=== PATIENT | male | born 2000 | race Caucasian/White ===

== ENCOUNTER 2018-10-09 12:11 | Inpatient (IN) | payer BC ==
[~2018-10-09] VITALS: Ht 185.4 cm; Wt 100.5 kg
--- OUTSIDE RECORDS SUMMARY | 2018-10-09 12:18 | XMS REPORT | Encounter Summary ---
Author Organization Unknown Address [address] [place] [address] Phone [phone] Reason for Visit Medical Complaint Instructions 1. Infectious mononucleosis mononucleosis, heterophile Ab, blood mononucleosis: care instructions 2. On examination - fever rapid flu (A+B) rapid strep group A, throat 3. Body mass index 25-29 - overweight learning about healthy weight 4. On examination - pulse rate - bradycardia 5. Counseling HPV (human papillomavirus) vaccine Gardasil: what you need to know influenza (flu) vaccine (inactivated or recombinant): what you need to know Discussion Note: None recorded. Plan of Care Patient Instructions Your Care Instructions Mononucleosis, also called mono, is an infection that is usually caused by the Vickey-Tejada virus. [place] is spread through contact with saliva, mucus from the nose and throat, and sometimes tears or blood. You can get mono by kissing a person who is infected. Or you may get it by sharing a drinking glass or eating utensils with someone who has mono. That person may not be sick at the time or may have had mono long before. [place] may cause your spleen to swell. The spleen is an organ in the upper left side of your belly. A blow to the belly can cause a swollen spleen to break open. In very rare cases, the spleen may burst on its own. Most people recover fully after several weeks. But it may take several months before your normal energy is back. The lymph nodes in your neck may be larger than normal for up to 1 month. Getting lots of rest and keeping your schedule light will help you feel better. Time helps you recover. Follow-up care is a rueda part of your treatment and safety. Be sure to make and go to all appointments, and call your doctor if you are having problems. It's also a good idea to know your test results and keep a list of the medicines you take. How can you care for yourself at home? Get plenty of rest. Stay in bed until you feel well enough to be up. Drink plenty of fluids, enough so that your urine is light yellow or clear like water. If you have kidney, heart, or liver disease and have to limit fluids, talk with your doctor before you increase the amount of fluids you drink. Take your medicines exactly as prescribed. Call your doctor if you think you are having a problem with your medicine. For a sore throat, suck on lozenges or gargle with salt water. To make salt water, mix 1 teaspoon of salt in 8 ounces of warm water. Take an gtyt-rzq-bkyuryn pain medicine, such as acetaminophen (Tylenol), ibuprofen (Advil, Motrin), or naproxen (Aleve) for a sore throat or headache or to lower a fever. Read and follow all instructions on the label. Do not take two or more pain medicines at the same time unless the doctor told you to. Many pain medicines have acetaminophen, which is Tylenol. Too much acetaminophen (Tylenol) can be harmful. Do not play contact sports for 4 weeks. Do not lift anything heavy. Too much activity increases the chance that your spleen may break open. Try not to spread the virus to others. Do not kiss or share dishes, glasses, eating utensils, or toothbrushes for at least two weeks. The virus is spread when saliva from an infected person gets in another person's mouth. It is hard to know how long you may be contagious. If you know you have mono, do not donate blood. There is a chance of spreading the virus through blood products. When should you call for help? Call 911 anytime you think you may need emergency care. For example, call if: You passed out (lost consciousness). Call your doctor now or seek immediate medical care if: You have new or worse belly pain. You have signs of needing more fluids. You have sunken eyes and a dry mouth, and you pass only a little urine. You are dizzy or lightheaded, or you feel like you may faint. You cannot swallow fluids. Watch closely for changes in your health, and be sure to contact your doctor if: You do not get better as expected. Reminders Provider Appointments None recorded. Lab Rapid Flu (A+B) 10/06/2018 [facility] Mononucleosis, Heterophile Ab, Blood 10/06/2018 [facility] Rapid Strep Group a, Throat 10/06/2018 [facility] Referral None recorded. Procedures None recorded. Surgeries None recorded. Imaging None recorded. Medications No Medications Reported Medications Administered None recorded. Vitals Height Weight BMI Blood Pressure 6 ft 1 in 220 lbs 29 kg/m2 112/76 mm[Hg] Lab Results Date Name Specimen Result Interpretation Description Value Range Status Address 10/06/2018 Mononucleosis, Heterophile Ab, Blood Result positive [facility]: [address] [place] [address] Rapid Strep Group a, Throat Result negative [facility]: [address] [place] [address] Swab Location Left and Right tonsillar pillars [facility]: [address] [place] [address] Rapid Flu (A+B) Influenza a negative [facility]: [address] [place] [address] Influenza B negative [facility]: [address] [place] [address] Allergies Code Code System Name Reaction Severity Status Onset NKDA Problems Name Status Onset Date Source Environmental Allergy Active 10/06/2018 Procedures None recorded. Vaccine List None recorded. Social History Smoking Status Never Smoker Past Encounters 10/06/2018 Infectious Mononucleosis; On Examination - Fever; Body Mass Index 25-29 - Overweight; On Examination - Pulse Rate - Bradycardia; Counseling Usha Christina, CHIEF DESIGN ENGINEER-C: [address] [place] [address], Ph. History of Present Illness Ekzjvga-Cmwhf-Lvi Reported By: Patient HPI: Duration: 6 days. Severity: highest temperature 102. Context: no ill contacts, no tick/insect bites, no recent travel, no new medications. Associated Symptoms: no rash, no lethargy, fever/chills, headache, muscle aches, tired (fatigue). Modifying Factors OTC medication Review of Systems:ROS as noted in the HPI Review of Systems Basic Reported By: Patient Physical Exam Adult Basic, 14-21 Yr Male, Adult Male Complete Reported By: Patient Constitutional: General Appearance: healthy-appearing, well-nourished, well-developed. Level of Distress: NAD. Ambulation: ambulating normally Psychiatric: Mental Status: active and alert, normal affect, normal mood. Orientation: to time, to place, to person Djj-Hjwz-Kygfi-Throat: Ears: no lesions on external ear, no outer ear tenderness, EACs clear, TMs clear. Hearing: no hearing loss. Nose: no lesions on external nose, nares patent, no septal deviation, nasal passages clear, no sinus tenderness, no nasal discharge. Lips, Teeth, and Gums: no mouth or lip ulcers, no bleeding gums, normal dentition. Oropharynx: moist mucous membranes, no erythema, no exudates, tonsils not enlarged Lungs: Respiratory effort: no dyspnea, no tachypnea, no use of accessory muscles, no intercostal retractions. Auscultation: breath sounds normal, clear to auscultation, no wheezing, no rales/crackles, no rhonchi, no retractions, good air movement Cardiovascular: Heart Auscultation: no murmurs, bradycardia. Rate and rhythm: regular
--- OUTSIDE RECORDS SUMMARY | 2018-10-09 12:18 | XMS REPORT | Summary of Care ---
Author Author [facility] Address Unknown Phone Unavailable Encounter HQ Encntr_alicayetano([facility]) [id number] Date(s): 01/12/16 - 02/10/16 [facility] Discharge Disposition: Home or Self Care Attending Physician: Rolando Gao MD Vital Signs No data available for this section Problem List No data available for this section Allergies, Adverse Reactions, Alerts No data available for this section Medications No data available for this section Results No data available for this section Immunizations No data available for this section Procedures No data available for this section Social History No data available for this section Assessment and Plan No data available for this section
--- OUTSIDE RECORDS SUMMARY | 2018-10-09 12:18 | XMS REPORT | Summary of Care ---
Author Author [facility] Organization [facility] Address Unknown Phone Unavailable Encounter HQ Encntr_anitra([facility]) [id number] Date(s): 09/11/15 - 10/10/15 [facility] Discharge Disposition: Home Attending Physician: Rolando Gao MD Vital Signs [...]
--- OUTSIDE RECORDS SUMMARY | 2018-10-09 12:18 | XMS REPORT | Summary of Care ---
Author Author [facility] Address Unknown Phone Unavailable Encounter HQ Encntr_alicayetano([facility]) [id number] Date(s): 03/15/16 - 04/13/16 [facility] Discharge Disposition: Home or Self Care Attending [...]
--- OUTSIDE RECORDS SUMMARY | 2018-10-09 12:18 | XMS REPORT | Continuity of Care Document ---
Author Author [facility] Address Unknown Phone Unavailable Care Team Providers Care Genetics Teacher Name Role Phone [facility] Unavailable Unavailable Problems Problem Status Onset Date Classification Date Reported Comments Source Counseling 10/06/2018 Diagnosis 10/06/2018 [facility] On examination - pulse rate - bradycardia 10/06/2018 Diagnosis 10/06/2018 [facility] Body mass index 25-29 - overweight 10/06/2018 Diagnosis 10/06/2018 [facility] Infectious mononucleosis 10/06/2018 Diagnosis 10/06/2018 [facility] On examination - fever 10/06/2018 Diagnosis 10/06/2018 [facility] Environmental Allergy 10/06/2018 Problem 10/06/2018 [facility] M25.562 - PAIN IN LEFT KNEE Active 01/03/2015 [facility] [place] LEFT KNEE ACL TEAR/SX 01/16/15 Active 01/02/2015 [facility] LT KNEE POST OP Active [facility] LT ACL PARTIAL TEAR Active [facility] LT ACL Active [facility] [place] Medications Medication Details Route Status Patient Instructions Ordering Provider Order Date Source No Medications Reported No Medications Reported Active [facility] Allergies, Adverse Reactions, Alerts No Known Medication Allergies Immunizations No Data Provided for This Section Results Order Name Results Value Reference Range Date Interpretation Comments Source RESULT positive 10/06/2018 [facility] RESULT negative 10/06/2018 [facility] SWAB LOCATION Left and Right tonsillar pillars 10/06/2018 [facility] Influenza A negative 10/06/2018 [facility] Influenza B negative 10/06/2018 [facility] Pathology Reports No Data Provided for This Section Diagnostic Reports Report Value Date Source Knee wo contrast MRI EXAM: MR LEFT KNEE WITHOUT CONTRAST DATE: 10/04/2015 11:24 AM CDT INDICATION: S83.512A Sprain of anterior cruciate ligament of left knee, initial encounter COMPARISON: 2014 TECHNIQUE: Multiplanar, multisequence noncontrast imaging of the knee. FINDINGS: Menisci: Medial meniscus: Intact. Lateral meniscus: Free edge irregularity of the posterior body of the lateral meniscus is identified.. (Series 4 image 24). No displaced tear. Intrameniscal degenerative changes are present. Ligaments: Prior ACL replacement is identified. There is high-grade partial- thickness tear of the distal substance of the ACL graft material with approximately 20-30 % of fibers still remaining intact. (Series 5 image 18). There is some laxity of the remaining graft material. Visualized tibial and femoral portions of the ACL tunnels are normal. PCL is intact.. Subacute to chronic grade 2 age injury of the anterior longitudinal bundle of the medial collateral ligament midsubstance is seen. Lateral collateral ligament is intact. Extensor mechanism: Minimal tendinosis the proximal patellar tendon is identified. Muscles: No signal abnormality in the muscles. Cartilage: No chondral defects. Bone: Bone edema seen involving the inferior pole of the patella where there is also minimal trabecular impaction without focal depression. There is minimal adjacent Hoffa's fat pad edema. Pivot shift type of bone contusion is seen involving the posterior tibial plateau. Soft tissue: Moderate size joint effusion with synovitis is present. No abnormality of the neurovascular structures. IMPRESSION: 1. . High-grade distal substance ACL graft tear. Less than 20-30% of fibers are still intact. Laxity of the graft is noted. Tibial and femoral tunnels are satisfactory with no evidence of dilatation. 2. Trabecular impaction without focal depression of the inferior pole of the patella with bone edema and adjacent Hoffa's fat pad edema likely due to direct injury. 3. Subacute to chronic grade 2 injury of the anterior longitudinal bundle of the medial collateral ligament. 4. Free edge irregularity of the posterior body of the lateral meniscus with intrasubstance degeneration. 5. Pivot shift type of bone edema of the posterior tibial plateau. 6. Joint effusion mild synovitis 10/04/2015 NICOLASA Dior Knee wo contrast MRI EXAM: MRI LEFT KNEE WITHOUT CONTRAST DATE: 01/07/2015 at 1326 hours INDICATION: Left knee pain COMPARISON: Left knee series 01/03/2015 TECHNIQUE: Multiplanar noncontrast imaging of the knee was performed. FINDINGS: The exam is mild limited by patient motion. Menisci: There is a grade 2 sprain of the meniscofemoral ligaments of the midbody of the medial meniscus. The medial and lateral menisci are intact. Ligaments: ACL: Full-thickness midsubstance rupture of the ACL. MCL: Grade 2 sprain of the anterior fibers of the MCL proximally. The PCL and lateral collateral ligaments are intact. Extensor mechanism: The quadriceps tendon, patella and the patellar tendon are intact. Muscles: There is minimal edema within the psoas, without muscle tear. No signal abnormality in the muscles. Cartilage: No cartilage defects. Bone: A pivot shift contusion pattern is seen with edema within the posterolateral and posteromedial tibial plateaus and the lateral femoral condyle in the region of the lateral sulcus. No focal depression. Soft tissue: A small suprapatellar knee effusion is present. No abnormality of the neurovascular structures. IMPRESSION: 1. Full-thickness midsubstance rupture of the ACL. 2. Grade 2 sprain of the proximal MCL. 3. Low grade sprain of the medial meniscofemoral ligaments at the mid body of the medial meniscus. No meniscal tear. 4. Pivot shift contusions without focal depression. 01/07/2015 NICOLASA Dior Knee 4+ views unilateral DX EXAM: Knee 4+ views unilateral HISTORY: M25.562 Pain in left knee COMPARISON: None Four views of the left knee. No fracture is seen. There is no evidence of soft tissue swelling. Alignment is normal. No osteochondral lesion is identified. There is a small joint effusion. IMPRESSION: No acute abnormality. 01/03/2015 NICOLASA [place] Consultation Notes No Data Provided for This Section Discharge Summaries No Data Provided for This Section History and Physicals No Data Provided for This Section Vital Signs Vital Sign Value Date Comments Source Diastolic (mm Hg) 76 10/06/2018 [facility] Height 73 10/06/2018 [facility] Systolic (mm Hg) 112 10/06/2018 [facility] Weight 220 10/06/2018 [facility] Encounters Location Location Details Encounter Type Encounter Number Reason For Visit Attending Provider ADM Date DC Date Status Source [facility] [place] [facility] [id number] Gm Auguste Jr 01/03/2015 01/04/2015 NICOLASA Lucas [facility] [place] [facility] [id number] Gm Auguste Jr 01/07/2015 01/08/2015 NICOLASA Dior [facility] OP Therapy Patients [id number] Gm Auguste Jr 07/09/2015 08/08/2015 [facility] OP Therapy Patients [id number] Rolando Griffin08/08/2015 09/07/2015 [facility] [id number] Rolando Griffin09/11/2015 10/11/2015 [facility] [place] Out[facility] Di[facility] [id number] Rolando Griffin10/04/2015 10/05/2015 [facility] [place] [facility] [place] OP Therapy Patients [id number] Rolando Griffin01/12/2016 02/11/2016 [facility] [place] [facility] [place] [facility] Therapy Patients [id number] Rolando Griffin02/11/2016 03/12/2016 [facility] [place] [facility] [place] OP Therapy Patients [id number] Rolando Griffin03/15/2016 2016 [facility] [place] - [facility] - [id number] Usha Christina, COMPENSATION AGENT-C: [address], [place] [address], Ph. [id number] Usha Christina 10/06/2018 [facility] Procedures No Data Provided for This Section Assessment and Plan No Data Provided for This Section Plan of Care No Data Provided for This Section Social History Social History Date Source Smoking Status Never Smoker 10/06/2018 [facility] No data available for this section 2016 [facility] [place] No data available for this section 10/11/2015 [facility] No data available for this section 10/05/2015 [facility] [place] No data available for this section 01/04/2015 [facility] [place] Family History No Data Provided for This Section Advance Directives No Data Provided for This Section Functional Status No Data Provided for This Section
--- OUTSIDE RECORDS SUMMARY | 2018-10-09 12:18 | XMS REPORT | Summary of Care ---
Author Author [facility] [place] Address Unknown Phone Unavailable Encounter HQ Encntr_alias([facility]) [id number] Date(s): 01/07/15 - 01/07/15 [facility] Outpatient [facility] [place] [address] [place] [phone] Discharge Disposition: Home Attending Physician: Gm Robles MD Vital Signs No data available for [...]
--- OUTSIDE RECORDS SUMMARY | 2018-10-09 12:18 | XMS REPORT | Summary of Care ---
Author Author [facility] [place] Address Unknown Phone Unavailable Encounter HQ Encntr_alias([facility]) [id number] Date(s): 10/04/15 - 10/04/15 [facility] [place] [address] [place] [phone] Discharge Disposition: Home Attending Physician: Rolando Gao [...]
--- OUTSIDE RECORDS SUMMARY | 2018-10-09 12:18 | XMS REPORT | Summary of Care ---
Author Author [facility] Organization [facility] Address Unknown Phone Unavailable Encounter HQ Marizolberthar_anitra([facility]) [id number] Date(s): 07/09/15 - 08/07/15 [facility] Discharge Disposition: Home Attending Physician: Gm Robles [...]
--- OUTSIDE RECORDS SUMMARY | 2018-10-09 12:18 | XMS REPORT | Summary of Care ---
Author Author [facility] Address Unknown Phone Unavailable Encounter HQ Encntr_alicayetano([facility]) [id number] Date(s): 02/11/16 - 03/11/16 [facility] Discharge Disposition: Home or Self Care [...]
--- OUTSIDE RECORDS SUMMARY | 2018-10-09 12:18 | XMS REPORT | Summary of Care ---
Author Author [facility] Organization [facility] Address Unknown Phone Unavailable Encounter HQ Salomónr_anitra([facility]) [id number] Date(s): 08/08/15 - 09/06/15 [facility] Discharge Disposition: Home Attending Physician: Rolando Gao [...]
--- OUTSIDE RECORDS SUMMARY | 2018-10-09 12:18 | XMS REPORT | Summary of Care ---
Author Author [facility] [place] Organization [facility] [place] Address Unknown Phone Unavailable Encounter HQ Encntr_anitra([facility]) [id number] Date(s): 01/03/15 - 01/03/15 [facility] [place] [address] [place], [place] [address] [phone] Discharge Disposition: Home Attending Physician: Gm Robles [...]
[2018-10-09] MEDS ORDERED: SODIUM CHLORIDE 0.9% 1000ML 1,000 ML IV STA (12:38)
[2018-10-09] MEDS ORDERED: ONDANSETRON HCL INJ 2MG/ML 2ML 2 MG/ML VIAL IV ONE (13:00)
[2018-10-09 13:07] LABS: BILIRUBIN,URINE LARGE (NEGATIVE); CLARITY,URINE CLOUDY (CLEAR); COLOR,URINE ORANGE (YELLOW); LEUKOCYTE ESTERASE ,URINE NEGATIVE (NEGATIVE); NITRITE,URINE NEGATIVE (NEGATIVE); PROTEIN,URINE DIPSTICK 1+ (NEGATIVE); URINE UROBILINOGEN 4 mg/dL (0.2 - 1)
[2018-10-09 13:11] LABS: KETONES,URINE 2+ (NEGATIVE)
[2018-10-09 13:22] LABS: BACTERIA,URINE MODERATE /HPF
[2018-10-09 13:34] LABS: AMPHETAMINES SCREEN,URINE NEGATIVE (NEGATIVE); BENZODIAZEPINES SCREEN,URINE NEGATIVE (NEGATIVE); PHENCYCLIDINE SCREEN,URINE NEGATIVE (NEGATIVE)
[2018-10-09 13:39] LABS: BASOPHILS # (AUTO) 0.1 (0.0-0.1); BASOPHILS % 0.9 % (0.0-1.0); EOSINOPHILS # (AUTO) 0.1 (0.0-0.4); EOSINOPHILS % 0.5 % (0.0-6.0); HEMATOCRIT 40.6 % (38.2-49.6); HEMOGLOBIN 14.5 g/dL (14.0-18.0); LYMPHOCYTES # (AUTO) 8.7 (1.0-3.2); LYMPHOCYTES % 67.8 % (18.0-39.1); MEAN CORPUSCULAR HEMOGLOBIN 28.5 pg (28-32); MEAN CORPUSCULAR HGB CONC 35.7 g/dL (31-35); MEAN CORPUSCULAR VOLUME 79.9 fL (81-99); MONOCYTES # (AUTO) 1.8 (0.2-0.8); MONOCYTES % 14.1 % (4.4-11.3); NEUTROPHILS # (AUTO) 2.1 (2.1-6.9); NEUTROPHILS % 16.3 % (38.7-80.0); PLATELET COUNT 113 x10e3/uL (140-360); RED BLOOD COUNT 5.08 x10e6/uL (4.3-5.7); RED CELL DISTRIBUTION WIDTH 12.9 % (11.7-14.4)
[2018-10-09 13:56] LABS: ALANINE AMINOTRANSFERASE 319 IU/L (0-55); ALBUMIN 3.7 g/dL (3.5-5.0); ALBUMIN/GLOBULIN RATIO 0.9 (0.8-2.0); ALKALINE PHOSPHATASE 332 IU/L (40-150); ANION GAP 17.7 mmol/L (8-16); BLOOD UREA NITROGEN 10 mg/dL (7-26); BUN/CREATININE RATIO 10 (6-25); CALCIUM 9.4 mg/dL (8.4-10.2); CARBON DIOXIDE 22 mmol/L (22-29); CHLORIDE 98 mmol/L (98-107); CREATININE, SERUM 1.02 mg/dL (0.72-1.25); EST GLOMERULAR FILTRATION RATE > 60 ML/MIN (60-); GLUCOSE 81 mg/dL (74-118); POTASSIUM 3.7 mmol/L (3.5-5.1); SODIUM 134 mmol/L (136-145)
[2018-10-09 14:05] LABS: CREATINE KINASE MB 0.4 ng/mL (0-5.0)
--- NOTE | 2018-10-09 14:06 | Diagnostic Imaging Report ---
PROCEDURE: Frontal and lateral views of the chest. COMPARISON: None. INDICATIONS: FEVER, MONO FINDINGS: Lines/tubes: None. Lungs: The lungs are well inflated and clear. There is no evidence of pneumonia or pulmonary edema. Pleura: There is no pleural effusion or pneumothorax. Heart and mediastinum: The heart and the mediastinum are normal. Bones: No acute bony abnormality. IMPRESSION: 1. No acute cardiopulmonary abnormality. Dictated by: Efrain Fletcher M.D. on 10/09/2018 at 14:10 Electronically approved by: Efrain Fletcher M.D. on 10/09/2018 at 14:10
[2018-10-09 14:35] LABS: AMPHETAMINES SCREEN,URINE NEGATIVE (NEGATIVE); BENZODIAZEPINES SCREEN,URINE NEGATIVE (NEGATIVE); PHENCYCLIDINE SCREEN,URINE NEGATIVE (NEGATIVE)
[2018-10-09 15:13] LABS: AMYLASE 66 U/L (25-125); LIPASE 33 U/L (8-78)
[2018-10-09] MEDS ORDERED: PROAIR HFA INH8.5 GM INH (15:38)
[2018-10-09] MEDS ORDERED: PREDNISONE20 MG PO (15:38)
--- NOTE | 2018-10-09 16:46 | Diagnostic Imaging Report ---
EXAM: CT Abdomen and Pelvis WITH intravenous contrast INDICATION: Abdominal pain COMPARISON: None. TECHNIQUE: Abdomen and pelvis were scanned utilizing a multidetector helical scanner from the lung base to the pubic symphysis after administration of IV contrast. Coronal and sagittal reformations were obtained. Routine protocol was performed. Scan was performed when during portal venous phase. IV CONTRAST: 100 mL of Isovue-370 ORAL CONTRAST: Water COMPLICATIONS: None RADIATION DOSE: Total DLP: 526.92 mGy*cm Estimated effective dose: (DLP x 0.015 x size factor) mSv Dose modulation, iterative reconstruction, and/or weight based adjustment of the mA/kV was utilized to reduce the radiation dose to as low as reasonably achievable. FINDINGS: LOWER THORAX: Minimal bibasilar dependent subsegmental atelectasis. No focal consolidation. HEPATOBILIARY: No focal hepatic lesions. No biliary ductal dilatation. The gallbladder is decompressed. SPLEEN: Splenomegaly to 18.2 cm PANCREAS: No focal masses or ductal dilatation. ADRENALS: No adrenal nodules. KIDNEYS/URETERS: No hydronephrosis, stones, or solid mass lesions. PELVIC ORGANS/BLADDER: Unremarkable. PERITONEUM / RETROPERITONEUM: No free air or fluid. LYMPH NODES: No lymphadenopathy. VESSELS: Unremarkable. GI TRACT: No distention or wall thickening. Normal appendix. BONES AND SOFT TISSUES: Unremarkable. IMPRESSION: No acute findings in the abdomen or pelvis. Mild splenomegaly. Signed by: Jus Mota MD on 10/09/2018 4:43 PM
--- OUTSIDE RECORDS SUMMARY | 2018-10-09 18:29 | XMS REPORT | Continuity of Care Document ---
Author Author [employer] Address Unknown Phone Unavailable Care Team Providers Care Director Workforce Management Name Role Phone [employer] Unavailable Unavailable Problems Problem Status Onset Date [...] PAIN IN LEFT KNEE Active 01/03/2015 [facility] LEFT KNEE ACL TEAR/SX 01/16/15 Active 01/02/2015 [facility] LT KNEE POST OP Active [facility] LT ACL PARTIAL TEAR Active [facility] LT ACL Active [facility] Medications Medication Details Route Status Patient Instructions [...] Provider ADM Date DC Date Status Source [facility] [place] [facility] [id number] Gm Auguste Jr 01/03/2015 01/04/2015 NICOLASA Lucas [facility] [place] [facility] [id number] Gm Auguste Jr 01/07/2015 01/08/2015 NICOLASA Dior [facility] OP Therapy Patients [id number] Gm Auguste Jr 07/09/2015 08/08/2015 [facility] OP Therapy Patients [id number] Rolando Griffin08/08/2015 09/07/2015 [facility] OP [facility] Patients [id number] Rolando Griffin09/11/2015 10/11/2015 [facility] [place] [facility] [id number] Rolando Griffin10/04/2015 10/05/2015 [facility] [place] Patients [id number] Rolando Griffin01/12/2016 02/11/2016 [facility] Patients [id number] Rolando Griffin02/11/2016 03/12/2016 [facility] Patients [id number] Rolando Griffin03/15/2016 2016 [facility] [place] [facility] - [id number] Usha Christina, CONTROL OFFICER-C: [address], [place] [address], Ph. [id number] Usha Christina 10/06/2018 [facility] Procedures No Data Provided for This Section Assessment and Plan No Data Provided for This Section Plan of Care No Data Provided for This Section Social History Social History Date Source Smoking Status Never Smoker 10/06/2018 [facility] No data available for this section 2016 [facility] No data available for this section 10/11/2015 [facility] No data available for this section 10/05/2015 [facility] [place] No data available for this section 01/04/2015 [facility] Family History No Data Provided for This Section Advance Directives No Data Provided for This Section Functional Status No Data Provided for This Section
--- OUTSIDE RECORDS SUMMARY | 2018-10-09 18:29 | XMS REPORT ---
Author Author [facility] Address Unknown Phone Unavailable Care Team Providers Care It Infrastructure Manager Name Role Phone Ayleen KIDD Unavailable Unavailable Problems This patient has no known problems. Allergies, Adverse Reactions, Alerts This patient has no known allergies or adverse reactions. Medications This patient has no known medications. Results Test Description Test Time Test Comments Text Results Atomic Results Result Comments CT ABDOMEN/PELVIS W 2018-10-09 16:36:00 [facility] [address] [place] [address] Patient Name: RENETTA FERNÁNDEZ MR #: [id number] : 2000 Age/Sex: 18/M Req #: [id number] Adm Physician: Ordered by: FLORENCIO CAGLE GARNETT ROOM WORKER Report #: [id number] Location: ER Room/Bed: Procedure: [id number] CT/CT ABDOMEN/PELVIS W Exam Date: 10/09/18 Exam Time: 1530 REPORT STATUS: Signed EXAM: CT Abdomen and Pelvis WITH intravenous contrast INDICATION: Abdominal pain COMPARISON: None. TECHNIQUE: Abdomen and pelvis were scanned utilizing a multidetector helical scanner from the lung base to the pubic symphysis after administration of IV contrast. Coronal and sagittal reformations were obtained. Routine protocol was performed. Scan was performed when during portal venous phase. IV CONTRAST: 100 mL of Isovue-370 ORAL CONTRAST: Water COMPLICATIONS: None RADIATION DOSE: Total DLP: 526.92 mGy*cm Estimated effective dose: (DLP x 0.015 x size factor) mSv Dose modulation, iterative reconstruction, and/or weight based adjustment of the mA/kV was utilized to reduce the radiation dose to as low as reasonably achievable. FINDINGS: LOWER THORAX: Minimal bibasilar dependent subsegmental atelectasis. No focal consolidation. HEPATOBILIARY: No focal hepatic lesions. No biliary ductal dilatation. The gallbladder is decompressed. SPLEEN: Splenomegaly to 18.2 cm PANCREAS: No focal masses or ductal dilatation. ADRENALS: No adrenal nodules. KIDNEYS/URETERS: No hydronephrosis, stones, or solid mass lesions. PELVIC ORGANS/BLADDER: Unremarkable. PERITONEUM / RETROPERITONEUM: No free air or fluid. LYMPH NODES: No lymphadenopathy. VESSELS: Unremarkable. GI TRACT: No distention or wall thickening. Normal appendix. BONES AND SOFT TISSUES: Unremarkable. IMPRESSION: No acute findings in the abdomen or pelvis. Mild splenomegaly. Signed by: Chela Mendez MD on 10/09/2018 4:43 PM Dictated By: CHELA MENDEZ MD 164 Transcribed By: ELISABET on 10/09/18 164 COPY TO: FLORENCIO CAGLE GARNETT ROOM WORKER CHEST 2 VIEWS 2018-10-09 14:10:00 [place] [address] Patient Name: RENETTA FERNÁNDEZ MR #: [id number] : 2000 Age/Sex: 18/M Req #: [id number] Adm Physician: Ordered by: FLORENCIO CAGLE GARNETT ROOM WORKER Report #: [id number] Location: ER Room/Bed: Procedure: [id number] DX/CHEST 2 VIEWS Exam Date: 10/09/18 Exam Time: 1250 REPORT STATUS: Signed PROCEDURE: Frontal and lateral views of the chest. COMPARISON: None. INDICATIONS: FEVER, MONO FINDINGS: Lines/tubes: None. Lungs: The lungs are well inflated and clear. There is no evidence of pneumonia or pulmonary edema. Pleura: There is no pleural effusion or pneumothorax. Heart and mediastinum: The heart and the mediastinum are normal. Bones: No acute bony abnormality. IMPRESSION: 1. No acute cardiopulmonary abnormality. Dictated by: Farhad Clifton M.D. on 10/09/2018 at 14:10 Electronically approved by: Farhad Clifton M.D. on 10/09/2018 at 14:10 Dictated By: FARHAD CLIFTON MD 1410 Transcribed By: YOGESH on 10/09/18 1410 COPY TO: FLORENCIO CAGLE NP
[2018-10-09 18:32] LABS: ANISOCYTOSIS MODERATE; LYMPHOCYTES % (MANUAL) 22 % (19-48); MONOCYTES % (MANUAL) 17 % (3.4-9.0); NEUTROPHILS % (MANUAL) 47 % (40-74); RBC MORPHOLOGY COMMENT ABNORMAL
[2018-10-09 18:33] LABS: PLATELET ESTIMATE SLIGHTLY DECREASED; PLATELET MORPHOLOGY COMMENT FEW GIANT; POIKILOCYTOSIS SLIGHT
[2018-10-09] MEDS ORDERED: IOPAMIDOL 370 MG/ML 200 ML INFUS..BTL INJ ONE (18:59)
[2018-10-09] MEDS ORDERED: SODIUM CHLORIDE 0.9% 50ML 50 ML ONE (18:59)
[2018-10-09 20:00] VITALS: BP 131/69
--- NOTE | 2018-10-09 20:00 | NUR ---
INITIAL ASSESSMENT COMPLETE, HEALTH HISTORY OBTAINED, PT ARRIVED ON UNIT 1944 VIA STRETCHER FROM ER, PT C/O SEVERE HEADACHE, HAS BEEN TO DR TWICE WITHIN A WEEK, DR SENT TO ER TODAY, POSSIBLE MONO AND DEHYDRATION. PT IV INTACT, FAMILY AT BEDSIDE, VS STABLE, CALL PLACED TO BRYANT WEISS FOR NEW ORDERS, PT HAS NO HOME MEDICATION, NO MEDICATION ORDERED HERE AT THIS TIME, WILL CONTINUE TO MONITOR.
[2018-10-09] MEDS ORDERED: IBUPROFEN 200 MG TAB PO PRN (20:15)
[2018-10-09] MEDS ORDERED: IBUPROFEN 400 MG TAB PO PRN (20:30)
[2018-10-09] MEDS ORDERED: MORPHINE SULFATE 2 MG/ML SYR 1ML IV PRN (21:00)
[2018-10-09] MEDS: DEXTROSE 5%/0.45% SOD CHL 1,000 ML IV SCH (21:00)
[2018-10-09] MEDS: ONDANSETRON HCL INJ 2MG/ML 2ML 2 MG/ML VIAL IV PRN (21:00)
[2018-10-09] MEDS: FAMOTIDINE 20 MG TAB PO SCH (21:00)
[2018-10-09] MEDS: IBUPROFEN 400 MG TAB PO PRN (21:00)
--- NOTE | 2018-10-09 21:00 | NUR ---
SPOKE WITH BRYANT WEISS, NEW ORDERS RECEIVED, HE SPOKE WITH DR VELASCO, IV FLUIDS STARTED, PT HAD CONTRAST TODAY, HAS ONLY URINATED ONCE IN 12 HOURS, IV MEDS ORDERED,
[2018-10-09] MEDS: MORPHINE SULFATE INJ 4 MG/ML INJ 1ML IV PRN (21:15)
[2018-10-09] MEDS: CEFTRIAXONE SOD 1 GM/NS 50 ML 50 ML IV SCH (21:15)
--- NOTE | 2018-10-09 22:00 | NUR ---
LABS DRAWN, SPOKE WITH BRYANT WEISS AGAIN, PT DID URINATE DARK BROWN RED URINE, STILL C/O OF HEADACHE THROBBING, CAN PUT CHIN TO CHEST WITHOUT PAIN, IV ABX STARTED, FAMILY AT BEDSIDE, CONTINUE TO MONITOR PT
[2018-10-09 23:01] LABS: CREATINE KINASE 66 IU/L (30-200)
[2018-10-09] MEDS ORDERED: DOCUSATE SODIUM 100 MG CAP PO PRN (23:45)
[2018-10-09] MEDS ORDERED: HYDRALAZINE HCL 20 MG/ML VIAL IV PRN (23:45)
[2018-10-09] MEDS ORDERED: POLYETHYLENE GLYCOL 3350 17 GM PACK PO PRN (23:45)
--- NOTE | 2018-10-10 | NUR ---
VS STABLE, NO FEVER, EASILY AWAKEN, IV INTACT, FAMILY AT BEDSIDE, CALL LIGHT IN REACH, NO DISTRESS NOTED
[2018-10-10 00:09] VITALS: BP 135/58
[2018-10-10 04:00] VITALS: BP 136/60
[2018-10-10] MEDS ORDERED: BACLOFEN 10 MG TAB PO PRN (05:15)
[2018-10-10] MEDS: IBUPROFEN 400 MG TAB PO PRN ×2 (05:25→14:20)
--- NOTE | 2018-10-10 05:35 | NUR ---
BUSHRA HERE TO SEE PT AND WRITE NEW ORDERS, CT SCAN W/O CONTRAST, NEW LAB ORDERS. PT STILL C/O HEADACHE AND URINE STILL DARK BROWN AND REDISH COLOR.
[2018-10-10 05:49] LABS: BASOPHILS % 0.5 % (0.0-1.0); EOSINOPHILS # (AUTO) 0.1 (0.0-0.4); EOSINOPHILS % 0.8 % (0.0-6.0); HEMATOCRIT 40.2 % (38.2-49.6); HEMOGLOBIN 13.9 g/dL (14.0-18.0); LYMPHOCYTES # (AUTO) 5.7 (1.0-3.2); LYMPHOCYTES % 66.9 % (18.0-39.1); MEAN CORPUSCULAR HEMOGLOBIN 27.9 pg (28-32); MEAN CORPUSCULAR HGB CONC 34.6 g/dL (31-35); MEAN CORPUSCULAR VOLUME 80.6 fL (81-99); MONOCYTES # (AUTO) 0.4 (0.2-0.8); NEUTROPHILS # (AUTO) 2.3 (2.1-6.9); NEUTROPHILS % 26.2 % (38.7-80.0); PLATELET COUNT 109 x10e3/uL (140-360); RED BLOOD COUNT 4.99 x10e6/uL (4.3-5.7); RED CELL DISTRIBUTION WIDTH 13.2 % (11.7-14.4)
[2018-10-10 06:10] LABS: ALANINE AMINOTRANSFERASE 263 IU/L (0-55); ALBUMIN 3.3 g/dL (3.5-5.0); ALBUMIN/GLOBULIN RATIO 0.9 (0.8-2.0); ALKALINE PHOSPHATASE 330 IU/L (40-150); ANION GAP 14.5 mmol/L (8-16); BLOOD UREA NITROGEN 8 mg/dL (7-26); BUN/CREATININE RATIO 8 (6-25); CALCIUM 8.9 mg/dL (8.4-10.2); CARBON DIOXIDE 24 mmol/L (22-29); CHLORIDE 101 mmol/L (98-107); CHOL/HDL RATIO 14.7 (3.9-4.7); CHOLESTEROL 103 MD/DL (0-199); CREATININE, SERUM 0.97 mg/dL (0.72-1.25); EST GLOMERULAR FILTRATION RATE > 60 ML/MIN (60-); GLUCOSE 115 mg/dL (74-118); HDL CHOLESTEROL 7 MG/DL (40-60); LDL CHOLESTEROL 47 MG/DL (60-130); MAGNESIUM 1.9 MG/DL (1.3-2.1); PHOSPHORUS 2.6 MG/DL (2.3-4.7); POTASSIUM 3.5 mmol/L (3.5-5.1); SODIUM 136 mmol/L (136-145); TRIGLYCERIDES 245 MG/DL (0-149)
--- NOTE | 2018-10-10 06:27 | NUR ---
PT DOWN AND BACK FROM CT SCAN VIA WHEELCHAIR. NO DISTRESS NOTED. CONTINUE TO MONITOR CONDITION
[2018-10-10] MEDS: ONDANSETRON HCL INJ 2MG/ML 2ML 2 MG/ML VIAL IV PRN ×2 (06:40→14:20)
--- NOTE | 2018-10-10 06:52 | Diagnostic Imaging Report ---
Examination: CT BRAIN WO CONTRAST History:Headache Comparison studies:None Technique: Axial images were obtained from the skull base to the vertex. Coronal and sagittal images reconstructed from the axial data. Dose modulation, iterative reconstruction, and/or weight based adjustment of the mA/kV was utilized to reduce the radiation dose to as low as reasonably achievable. Intravenous contrast: None Findings: Scalp: No abnormalities. Bones: No fractures, blastic or lytic lesions. Brain sulci: Appropriate for age. Ventricles: Normal in size and configuration. No hydrocephalus. Extra-axial space: No abnormalities. Parenchyma: No abnormal densities. No masses, hemorrhage, or acute or chronic cortical based vascular insults.. Sellar/suprasellar region: No abnormalities. Craniocervical junction: Patent foramen magnum. No Chiari one malformation. Incidental findings: None. Impression: No intracranial abnormalities. Signed by: Dr. Michelle Ferreira M.D. on 10/10/2018 6:49 AM
[2018-10-10 06:53] LABS: CREATINE KINASE 62 IU/L (30-200)
--- NOTE | 2018-10-10 07:00 | NUR ---
pt alert resp even and unlabored no distress noted pt able to make needs known, pt has family member at bedside call light in reach.
[2018-10-10 07:30] VITALS: BP 127/62
[2018-10-10] MEDS: DEXTROSE 5%/0.45% SOD CHL 1,000 ML IV SCH ×2 (08:23→17:29)
[2018-10-10] MEDS: FAMOTIDINE 20 MG TAB PO SCH ×2 (08:23→17:29)
[2018-10-10] MEDS: LORATADINE 10 MG TAB PO SCH (08:23)
--- NOTE | 2018-10-10 13:25 | NUR ---
Visit made by the Spiritual Care Department Pastoral Visitor, Jennifer Viera. PV provided pastoral presence, prayer, hospitality, and supportive listening. Pastoral Visitor informed pt/family of the scope of Chemistry Research Assistant Services and availability. LINNEA RIZO Color Developer Spiritual Care Department O: [phone] Pager: [phone] ([phone] number calling from)
--- NOTE | 2018-10-10 14:20 | NUR ---
pt abating in treadwell at this at time
[2018-10-10 14:51] LABS: CREATINE KINASE MB 0.6 ng/mL (0-5.0)
[2018-10-10 15:58] VITALS: BP 124/58
--- NOTE | 2018-10-10 19:40 | NUR ---
report given to oncoming nurse for continued care
[2018-10-10 20:00] VITALS: BP 131/74
[2018-10-10 21:00] VITALS: BP 132/78
[2018-10-10] MEDS: ACETAMINOPHEN 325 MG TAB PO PRN (21:27)
[2018-10-10] MEDS: CEFTRIAXONE SOD 1 GM/NS 50 ML 50 ML IV SCH (21:30)
[2018-10-10] MEDS: MORPHINE SULFATE INJ 4 MG/ML INJ 1ML IV PRN (22:36)
[2018-10-11] VITALS (7 sets, daily range): BP systolic 106–139; BP diastolic 44–68
[2018-10-11] MEDS: DEXTROSE 5%/0.45% SOD CHL 1,000 ML IV SCH ×2 (04:08→13:13)
[2018-10-11 05:50] LABS: BASOPHILS % 0.3 % (0.0-1.0); EOSINOPHILS # (AUTO) 0.1 (0.0-0.4); EOSINOPHILS % 0.8 % (0.0-6.0); HEMOGLOBIN 13.3 g/dL (14.0-18.0); LYMPHOCYTES # (AUTO) 8.8 (1.0-3.2); LYMPHOCYTES % 78.4 % (18.0-39.1); MEAN CORPUSCULAR HEMOGLOBIN 28.7 pg (28-32); MEAN CORPUSCULAR VOLUME 81.9 fL (81-99); MONOCYTES # (AUTO) 0.5 (0.2-0.8); MONOCYTES % 4.3 % (4.4-11.3); NEUTROPHILS # (AUTO) 1.8 (2.1-6.9); NEUTROPHILS % 15.7 % (38.7-80.0); PLATELET COUNT 112 x10e3/uL (140-360); RED BLOOD COUNT 4.64 x10e6/uL (4.3-5.7); RED CELL DISTRIBUTION WIDTH 13.9 % (11.7-14.4)
[2018-10-11 06:06] LABS: ANION GAP 11.5 mmol/L (8-16); BLOOD UREA NITROGEN < 5 mg/dL (7-26); BUN/CREATININE RATIO 5 (6-25); CALCIUM 8.9 mg/dL (8.4-10.2); CARBON DIOXIDE 25 mmol/L (22-29); CHLORIDE 104 mmol/L (98-107); CREATININE, SERUM 0.95 mg/dL (0.72-1.25); EST GLOMERULAR FILTRATION RATE > 60 ML/MIN (60-); GLUCOSE 110 mg/dL (74-118); POTASSIUM 3.5 mmol/L (3.5-5.1); SODIUM 137 mmol/L (136-145)
[2018-10-11 06:46] LABS: BILIRUBIN,DIRECT 6.6 mg/dL (0.0-0.5)
--- NOTE | 2018-10-11 07:18 | NUR ---
patient endorsed to next shift for continuity of care.
[2018-10-11 07:29] LABS: EOSINOPHILS % (MANUAL) 1 % (0-7); LYMPHOCYTES % (MANUAL) 51 % (19-48); MONOCYTES % (MANUAL) 14 % (3.4-9.0); NEUTROPHILS % (MANUAL) 28 % (40-74); RBC MORPHOLOGY COMMENT NORMAL
[2018-10-11 07:30] LABS: PLATELET ESTIMATE SLIGHTLY DECREASED; PLATELET MORPHOLOGY COMMENT NORMAL
[2018-10-11] MEDS: FAMOTIDINE 20 MG TAB PO SCH ×2 (09:22→16:55)
[2018-10-11] MEDS: LORATADINE 10 MG TAB PO SCH (09:22)
[2018-10-11] MEDS: ONDANSETRON HCL INJ 2MG/ML 2ML 2 MG/ML VIAL IV PRN (16:36)
--- NOTE | 2018-10-11 19:00 | NUR ---
Received report from previous nurse. Call light within reach. Mother at bedside. Patient in bed.
[2018-10-11] MEDS: ACETAMINOPHEN 325 MG TAB PO PRN (19:38)
[2018-10-11] MEDS: IBUPROFEN 400 MG TAB PO PRN (19:49)
[2018-10-11] MEDS: CEFTRIAXONE SOD 1 GM/NS 50 ML 50 ML IV SCH (21:17)
[2018-10-11] MEDS: MORPHINE SULFATE INJ 4 MG/ML INJ 1ML IV PRN (23:48)
[2018-10-12] VITALS (7 sets, daily range): BP systolic 106–131; BP diastolic 52–69
[2018-10-12] MEDS: DEXTROSE 5%/0.45% SOD CHL 1,000 ML IV SCH ×3 (00:46→21:29)
[2018-10-12 03:40] LABS: BASOPHILS % 0.3 % (0.0-1.0); EOSINOPHILS # (AUTO) 0.1 (0.0-0.4); EOSINOPHILS % 0.9 % (0.0-6.0); HEMATOCRIT 38.1 % (38.2-49.6); HEMOGLOBIN 12.9 g/dL (14.0-18.0); LYMPHOCYTES # (AUTO) 9.5 (1.0-3.2); LYMPHOCYTES % 81.5 % (18.0-39.1); MEAN CORPUSCULAR HEMOGLOBIN 27.9 pg (28-32); MEAN CORPUSCULAR HGB CONC 33.9 g/dL (31-35); MEAN CORPUSCULAR VOLUME 82.5 fL (81-99); MONOCYTES # (AUTO) 0.5 (0.2-0.8); MONOCYTES % 4.2 % (4.4-11.3); NEUTROPHILS # (AUTO) 1.5 (2.1-6.9); NEUTROPHILS % 12.4 % (38.7-80.0); PLATELET COUNT 119 x10e3/uL (140-360); RED BLOOD COUNT 4.62 x10e6/uL (4.3-5.7); RED CELL DISTRIBUTION WIDTH 14.1 % (11.7-14.4)
[2018-10-12 04:03] LABS: ALANINE AMINOTRANSFERASE 178 IU/L (0-55); ALBUMIN 2.9 g/dL (3.5-5.0); ALKALINE PHOSPHATASE 316 IU/L (40-150); ANION GAP 12.2 mmol/L (8-16); BILIRUBIN,DIRECT 7.1 mg/dL (0.0-0.5); BLOOD UREA NITROGEN 5 mg/dL (7-26); BUN/CREATININE RATIO 5 (6-25); CALCIUM 8.9 mg/dL (8.4-10.2); CARBON DIOXIDE 26 mmol/L (22-29); CHLORIDE 104 mmol/L (98-107); CREATININE, SERUM 0.91 mg/dL (0.72-1.25); EST GLOMERULAR FILTRATION RATE > 60 ML/MIN (60-); GLUCOSE 111 mg/dL (74-118); POTASSIUM 3.2 mmol/L (3.5-5.1); SODIUM 139 mmol/L (136-145)
[2018-10-12] MEDS ORDERED: TYLENOL # 31 EA PO (05:40)
[2018-10-12] MEDS ORDERED: AMOXICILLIN500 MG PO (05:40)
[2018-10-12] MEDS ORDERED: ZOFRAN4 MG PO (05:40)
[2018-10-12] MEDS ORDERED: POTASSIUM CHLORIDE 20 MEQ TAB CR PO ONE (06:35)
--- NOTE | 2018-10-12 07:14 | NUR ---
Gave report to oncoming nurse. Call light within reach. Patient in bed. mom at bedside
[2018-10-12] MEDS: LORATADINE 10 MG TAB PO SCH (08:30)
[2018-10-12] MEDS: FAMOTIDINE 20 MG TAB PO SCH ×2 (08:30→17:02)
[2018-10-12 12:41] LABS: LYMPHOCYTES % (MANUAL) 79 % (19-48); MONOCYTES % (MANUAL) 6 % (3.4-9.0); NEUTROPHILS % (MANUAL) 15 % (40-74)
[2018-10-12 12:42] LABS: PLATELET ESTIMATE SLIGHTLY DECREASED; PLATELET MORPHOLOGY COMMENT NORMAL
[2018-10-12 12:43] LABS: RBC MORPHOLOGY COMMENT NORMAL
--- NOTE | 2018-10-12 17:18 | NUR ---
DAY 3 OBS LEUKOCYTOSIS, TEMP 101, IV ABX CHANGED TO INPT STATUS
--- NOTE | 2018-10-12 19:55 | NUR ---
Called Dr. Robbins office, talked to RANIE Cordero about patient's mother wants the son to have something for cough. Consuelo order Mucinex DM q6h PRN. She was also told about what the patient ate which was a slice of jimenez, 3/4 sandwich, carrot and celery.
[2018-10-12] MEDS ORDERED: GUAIFENESIN 600MG/DEXTROMETHORPHAN 30MG TABSR PO PRN (20:00)
[2018-10-12] MEDS: IBUPROFEN 400 MG TAB PO PRN (20:46)
[2018-10-12] MEDS: CEFTRIAXONE SOD 1 GM/NS 50 ML 50 ML IV SCH (21:20)
[2018-10-13] VITALS: BP 111/55
[2018-10-13 03:38] LABS: BASOPHILS # (AUTO) 0.1 (0.0-0.1); BASOPHILS % 0.9 % (0.0-1.0); EOSINOPHILS # (AUTO) 0.1 (0.0-0.4); EOSINOPHILS % 0.6 % (0.0-6.0); HEMATOCRIT 37.4 % (38.2-49.6); HEMOGLOBIN 12.8 g/dL (14.0-18.0); LYMPHOCYTES # (AUTO) 10.2 (1.0-3.2); LYMPHOCYTES % 76.5 % (18.0-39.1); MEAN CORPUSCULAR HEMOGLOBIN 28.2 pg (28-32); MEAN CORPUSCULAR HGB CONC 34.2 g/dL (31-35); MEAN CORPUSCULAR VOLUME 82.4 fL (81-99); MONOCYTES # (AUTO) 1.5 (0.2-0.8); NEUTROPHILS # (AUTO) 1.4 (2.1-6.9); NEUTROPHILS % 10.4 % (38.7-80.0); PLATELET COUNT 106 x10e3/uL (140-360); RED BLOOD COUNT 4.54 x10e6/uL (4.3-5.7); RED CELL DISTRIBUTION WIDTH 14.6 % (11.7-14.4)
[2018-10-13 03:52] LABS: ALBUMIN 2.9 g/dL (3.5-5.0); BILIRUBIN,DIRECT 7.6 mg/dL (0.0-0.5)
[2018-10-13 04:00] VITALS: BP 122/53
[2018-10-13 04:13] LABS: ANION GAP 14.5 mmol/L (8-16); BLOOD UREA NITROGEN < 5 mg/dL (7-26); CALCIUM 8.8 mg/dL (8.4-10.2); CARBON DIOXIDE 23 mmol/L (22-29); CHLORIDE 103 mmol/L (98-107); CREATININE, SERUM 0.92 mg/dL (0.72-1.25); EST GLOMERULAR FILTRATION RATE > 60 ML/MIN (60-); GLUCOSE 91 mg/dL (74-118); POTASSIUM 3.5 mmol/L (3.5-5.1); SODIUM 137 mmol/L (136-145)
[2018-10-13 04:15] LABS: BUN/CREATININE RATIO 5 (6-25)
[2018-10-13] MEDS ORDERED: MUCINEX DM ER1 EACH PO (05:18)
[2018-10-13] MEDS ORDERED: CHLORASEPTIC SPRAY 177 ML BTL MM PRN (05:30)
--- NOTE | 2018-10-13 07:05 | NUR ---
GAVE REPORT TO ONCOMING NURSE. PATIENT IN BED ASLEEP. MOTHER AT BEDSIDE. CALL LIGHT WITHIN REACH.
--- NOTE | 2018-10-13 07:05 | NUR ---
RCD PT AT BED PT IS ALERT AND ORIENTED PT RESTING ON BED NO SIGNS OF ANY DISTRESS NOTED IV PATENT FAMILY AT BED SIDE BED LOW AND LOCKED CALL LIGHT IN REACH
[2018-10-13] MEDS: FAMOTIDINE 20 MG TAB PO SCH (07:30)
[2018-10-13 08:21] VITALS: BP 110/60
[2018-10-13 09:00] VITALS: BP 110/60
[2018-10-13] MEDS: LORATADINE 10 MG TAB PO SCH (09:00)
[2018-10-13] MEDS: DEXTROSE 5%/0.45% SOD CHL 1,000 ML IV SCH (09:09)
[2018-10-13 11:06] LABS: LYMPHOCYTES % (MANUAL) 63 % (19-48); MONOCYTES % (MANUAL) 6 % (3.4-9.0); NEUTROPHILS % (MANUAL) 15 % (40-74)
--- NOTE | 2018-10-13 11:07 | NUR ---
PT WENT HOME IN SAFE CONDITION WITH HIS PARENTS
[2018-10-13 11:09] LABS: ANISOCYTOSIS S; PLATELET ESTIMATE SLIGHTLY DECREASED; PLATELET MORPHOLOGY COMMENT NORMAL; POIKILOCYTOSIS S; RBC MORPHOLOGY COMMENT NORMAL
--- NOTE | 2018-10-14 09:23 | Discharge Summary ---
ADMISSION DIAGNOSES: Possible mono, headache with dizziness, and transaminitis. DISCHARGE DIAGNOSES: Possible mono, headache with dizziness, and transaminitis. [place]qu[place] positive, rule out hepatitis. Streptococcus pharyngitis, rule out cerebrovascular accident. HISTORY: None. SURGICAL HISTORY: Left leg ACL surgery. FAMILY HISTORY: The patient's grandma had diabetes. The patient's uncle, great grandpa, and grandma had cancer. The patient's grandpa had a stroke. SOCIAL HISTORY: Noncontributory. HOSPITAL COURSE: A 18-year-old male with no past medical history, complains of a temporal headache, fever up to 103 and vomiting that began 1 week ago. He also complains of dry cough that began 2-3 days ago. He denies sick contacts, drug use, dysuria, hematuria, and known STDs. He went to [facility] on Tuesday and the mono screen was positive. They sent him home, but he was unable to keep food down, so he came into the hospital. On admission, the patient's Vickey-Tejada IgM was very high. The mono screen was negative. Hepatitis panel was negative. Chest x-ray was negative. The patient's CT of the abdomen showed splenomegaly at 18.2 cm. No acute finding. CT of the brain was negative. Throat culture came back positive for Streptococcus group B. Blood cultures were negative. The patient's liver enzymes were elevated, but continued to trend down throughout hospitalization. After a couple of days of comfort measures and IV fluids, the patient began to tolerate food by mouth. He, however, had a fever of 101, so the discharge was held an additional day. He is now feeling a little bit better and still able to tolerate p.o., so he will discharge home with the Zofran, Tylenol No. 3, and initially was prescribed amoxicillin, but it was changed to Ceftin due to his mono as the patient was receiving Rocephin in the hospital. Vital signs stable, patient afebrile. The patient and mother understand discharge instructions and agree to plan. He was advised to not play contact sports for at least a month. Dictated by Consuelo Qureshi NP Bertin Robbins MD ADDISON/MODL /[id number]
== END 2018-10-13 11:07 | disposition home or self-care (01) | DRG 866 ==
LOC: ER 12:11 → ERHOLD 17:47 → IMCU 20:28 → OBSVTOIN 10-12 17:25
PROVIDERS: ADMIT Internal Medicine; ATTEND Internal Medicine
DX: B27.09 Gammaherpesviral mononucleosis with other complications (principal); Z83.3 Family history of diabetes mellitus; Z80.9 Family history of malignant neoplasm, unspecified; Z82.3 Family history of stroke; R51 Headache; R42 Dizziness and giddiness; R74.0 Nonspecific elevation of levels of transaminase and lactic acid dehydrogenase [LDH]; J02.0 Streptococcal pharyngitis
CPT/HCPCS: 36415; 70450; 71046; 74177; 80048; 80053; 80061; 80076; 80307; 80329; 81001; 82150; 82550; 82553; 83518; 83690; 83735; 84100; 84484; 85025; 86308; 86663; 86664; 86665; 86720; 87040; 87070; 99284; G0378; J0696; J2270; J2405; J7030; Q9967

== ENCOUNTER 2018-10-19 11:36 | Inpatient (IN) | payer BC ==
[~2018-10-19] VITALS: Ht 185.4 cm; Wt 94.3 kg
[~2018-10-19 11:36] MED LIST: AMOXICILLIN500 MG PO; MUCINEX DM ER1 EACH PO; PREDNISONE20 MG PO; PROAIR HFA INH8.5 GM INH; TYLENOL # 31 EA PO; ZOFRAN4 MG PO
--- OUTSIDE RECORDS SUMMARY | 2018-10-19 11:40 | XMS REPORT | Continuity of Care Document ---
Author Author [employer] Address Unknown Phone Unavailable Care Team Providers Care P 3 Armament/Ordnance Ima Technician Name Role Phone ADENTS HTI Information [employer] Unavailable Unavailable Problems Problem Status Onset Date [...] PAIN IN LEFT KNEE Active 01/03/2015 [facility] LEFT KNEE ACL TEAR/SX 01/16/15 Active 01/02/2015 [facility] Mononucleosis Active Problem 10/13/2018 [facility] Transaminitis Active Problem 10/13/2018 [facility] LT KNEE POST OP Active [facility] LT ACL PARTIAL TEAR Active [facility] LT ACL Active [facility] [place] Medications Medication Details Route Status Patient Instructions Ordering Provider Order Date Source Guaifenesin/Dextromethorphan (Mucinex Dm Er 600-30 Mg Tablet) 1 Each Tab.er.12h Every 12 Hours as needed for Cough Active Edwin 10/13/2018 [facility] Acetaminophen/Codeine Phosphate (Tylenol # 3*) 1 Ea Tab Every 8 Hours as needed for Headache Active [place] 10/12/2018 [facility] Amoxicillin 500 Mg Capsule Every 8 Hours Active Edwin 10/12/2018 [facility] Ondansetron Hcl (Zofran*) 4 Mg Tablet Every 12 Hours Active [place] 10/12/2018 [facility] Albuterol Sulfate (Proair Hfa Inhaler*) 8.5 Gm Inh, 1-2 Pump Inhalation Every 6 Hours as needed for Shortness Of Breath Inactive Jeni 10/09/2018 [facility] Prednisone 20 Mg Tab, 40 Mg Oral Daily Inactive Jeni 10/09/2018 [facility] No Medications Reported No Medications Reported Active [facility] Allergies, Adverse Reactions, Alerts No Known Medication Allergies Immunizations No Data Provided for This Section Results Order Name Results Value Reference Range Date Interpretation Comments Source Blood leukocytes automated count (number/volume) 13.30 4.8 - 10.8 10/13/2018 [facility] Blood erythrocytes automated count (number/volume) 4.54 4.3 - 5.7 10/13/2018 [facility] Blood hemoglobin measurement (moles/volume) 12.8 14.0 - 18.0 10/13/2018 [facility] Automated blood hematocrit (volume fraction) 37.4 38.2 - 49.6 10/13/2018 [facility] Automated erythrocyte mean corpuscular volume 82.4 81 - 99 10/13/2018 [facility] Automated erythrocyte mean corpuscular hemoglobin (mass per erythrocyte) 28.2 28 - 32 10/13/2018 [facility] Automated erythrocyte mean corpuscular hemoglobin concentration measurement (mass/volume) 34.2 31 - 35 10/13/2018 [facility] RDW BldCo-Rto 14.6 11.7 - 14.4 10/13/2018 [facility] Automated blood platelet count (count/volume) 106 140 - 360 10/13/2018 [facility] Automated blood segmented neutrophil count as percentage of total leukocytes 10.4 38.7 - 80.0 10/13/2018 [facility] Automated blood lymphocyte count as percentage ot total leukocytes 76.5 18.0 - 39.1 10/13/2018 [facility] Automated blood monocyte count as percentage of total leukocytes 11.0 4.4 - 11.3 10/13/2018 [facility] Automated blood eosinophil count as percentage of total leukocytes 0.6 0.0 - 6.0 10/13/2018 [facility] Automated blood basophil count as percentage of total leukocytes 0.9 0.0 - 1.0 10/13/2018 [facility] IM GRANULOCYTES % 0.6 0.0 - 1.0 10/13/2018 [facility] Automated blood neutrophil count 1.4 2.1 - 6.9 10/13/2018 [facility] Blood lymphocytes count (number/volume) 10.2 1.0 - 3.2 10/13/2018 [facility] Blood monocytes automated count (number/volume) 1.5 0.2 - 0.8 10/13/2018 [facility] Automated blood eosinophil count 0.1 0.0 - 0.4 10/13/2018 [facility] Automated blood basophil count (count/volume) 0.1 0.0 - 0.1 10/13/2018 [facility] Absolute Immature Granulocyte (auto 0.08 0 - 0.1 10/13/2018 [facility] Differential Total Cells Counted 100 10/13/2018 [facility] Manual blood neutrophils/100 leukocytes 15 40 - 74 10/13/2018 [facility] Manual blood lymphocytes/100 leukocytes 63 19 - 48 10/13/2018 [facility] Manual blood monocytes/100 leukocytes 6 3.4 - 9.0 10/13/2018 [facility] Blood lymphocytes variant count (number/volume) 16 10/13/2018 [facility] Blood platelets count by estimate (number/volume) SLIGHTLY DECREASED 10/13/2018 [facility] Platelet morphology NORMAL 10/13/2018 [facility] Blood poikilocytosis detection by light microscopy S 10/13/2018 [facility] Blood anisocytosis detection by light microscopy S 10/13/2018 [facility] RBC morphology NORMAL 10/13/2018 [facility] Serum or plasma sodium measurement (moles/volume) 137 136 - 145 10/13/2018 [facility] Serum or plasma potassium measurement (moles/volume) 3.5 3.5 - 5.1 10/13/2018 [facility] Serum or plasma chloride measurement (moles/volume) 103 98 - 107 10/13/2018 [facility] Serum or plasma carbon dioxide, total measurement (moles/volume) 23 22 - 29 10/13/2018 [facility] Serum or plasma anion gap 14.5 8 - 16 10/13/2018 [facility] Serum or plasma urea nitrogen measurement (mass/volume) < 5 7 - 26 10/13/2018 [facility] Serum or plasma creatinine measurement (mass/volume) 0.92 0.72 - 1.25 10/13/2018 [facility] Serum or plasma urea nitrogen/creatinine mass ratio 5 6 - 25 10/13/2018 [facility] Estimated glomerular filtration rate (GFR) determination > 60 60 10/13/2018 [facility] Glucose measurement 91 74 - 118 10/13/2018 [facility] Serum or plasma calcium measurement (mass/volume) 8.8 8.4 - 10.2 10/13/2018 [facility] Serum or plasma total bilirubin measurement (mass/volume) 9.9 0.2 - 1.2 10/13/2018 [facility] Serum or plasma conjugated bilirubin measurement (mass/volume) 7.6 0.0 - 0.5 10/13/2018 [facility] Aspartate Amino Transf (AST/SGOT) 123 5 - 34 10/13/2018 [facility] Serum or plasma alanine aminotransferase measurement (enzymatic activity/volume) 149 0 - 55 10/13/2018 [facility] Serum or plasma protein measurement (mass/volume) 6.5 6.5 - 8.1 10/13/2018 [facility] Serum or plasma albumin measurement (mass/volume) 2.9 3.5 - 5.0 10/13/2018 [facility] Serum or plasma alkaline phosphatase measurement (enzymatic activity/volume) 294 40 - 150 10/13/2018 [facility] Manual blood eosinophil count as percentage of total leukocytes 1 0 - 7 10/11/2018 [facility] Serum or plasma creatine kinase measurement (enzymatic activity/volume) 50 30 - 200 10/10/2018 [facility] Serum or plasma creatine kinase MB measurement (mass/volume) 0.60 0 - 5.0 10/10/2018 [facility] Troponin I measurement by highly sensitive enzyme immunoassay 0.004 0 - 0.300 10/10/2018 [facility] Phosphorus measurement 2.6 2.3 - 4.7 10/10/2018 [facility] Serum or plasma magnesium measurement (mass/volume) 1.9 1.3 - 2.1 10/10/2018 [facility] Plasma globulin measurement (mass/volume) 3.6 2.3 - 3.5 10/10/2018 [facility] Serum or plasma albumin/globulin mass ratio 0.9 0.8 - 2.0 10/10/2018 [facility] Serum or plasma triglyceride measurement (mass/volume) 245 0 - 149 10/10/2018 [facility] Serum or plasma cholesterol measurement (mass/volume) 103 0 - 199 10/10/2018 [facility] Serum or plasma cholesterol in LDL measurement (mass/volume) 47 60 - 130 10/10/2018 [facility] Serum or plasma cholesterol in HDL measurement (mass/volume) 7 40 - 60 10/10/2018 [facility] Serum or plasma total cholesterol/cholesterol in HDL mass ratio 14.7 3.9 - 4.7 10/10/2018 [facility] Serum heterophile antibody titer by latex agglutination NEGATIVE NEGATIVE 10/10/2018 [facility] Serum or plasma hepatitis A virus IgM antibody detection by immunoassay Negative Negative 10/10/2018 [facility] Serum or plasma hepatitis B virus surface antigen detection by immunoassay Negative Negative 10/10/2018 [facility] Serum or plasma hepatitis B virus core IgM antibody detection by immunoassay Negative Negative 10/10/2018 [facility] Serum hepatitis C virus antibody detection 0.1 0.0 - 0.9 10/10/2018 [facility] Blood culture NO GROWTH AFTER 72 HOURS 10/10/2018 [facility] Serum Vickey Tejada virus capsid IgM antibody assay (units/volume) >160.0 0.0 - 35.9 10/09/2018 [facility] Serum Vickey Tejada virus early IgG antibody assay (units/volume) 61.1 0.0 - 8.9 10/09/2018 [facility] Serum Vickey Tejada virus capsid IgG antibody assay (units/volume) 56.2 0.0 - 17.9 10/09/2018 [facility] Serum Vickey Tejada virus nuclear IgG antibody assay (units/volume) <18.0 0.0 - 17.9 10/09/2018 [facility] Interpretation of Vickey-Tejada virus antibody panel Comment . 10/09/2018 [facility] Serum or plasma amylase measurement (enzymatic activity/volume) 66 25 - 125 10/09/2018 [facility] Serum or plasma lipase measurement (enzymatic activity/volume) 33 8 - 78 10/09/2018 [facility] Serum or plasma acetaminophen measurement by screening method (mass/volume) < 3 10 - 30 10/09/2018 [facility] Urine color determination ORANGE YELLOW 10/09/2018 [facility] Urine clarity CLOUDY CLEAR 10/09/2018 [facility] Specific gravity of Urine by Test strip 1.015 1.010 - 1.025 10/09/2018 [facility] Urine pH measurement by automated test strip 6.5 5 - 7 10/09/2018 [facility] Urine leukocyte esterase detection by automated test strip NEGATIVE NEGATIVE 10/09/2018 [facility] Urine nitrite detection by automated test strip NEGATIVE NEGATIVE 10/09/2018 [facility] Urine protein detection by automated test strip 1+ NEGATIVE 10/09/2018 [facility] Urine glucose detection by automated test strip 1+ NEGATIVE 10/09/2018 [facility] Urine ketones detection by automated test strip 2+ NEGATIVE 10/09/2018 [facility] Urine opiates screening test NEGATIVE NEGATIVE 10/09/2018 [facility] Barbiturates screen, urine NEGATIVE NEGATIVE 10/09/2018 [facility] Urine phencyclidine detection by screening method NEGATIVE NEGATIVE 10/09/2018 [facility] Urine amphetamines detection by screen method > 1000 ng/mL NEGATIVE NEGATIVE 10/09/2018 [facility] Urine Methamphetamines Screen NEGATIVE NEGATIVE 10/09/2018 [facility] Urine benzodiazepines detection by screening method NEGATIVE NEGATIVE 10/09/2018 [facility] Urine cocaine measurement (mass/volume) NEGATIVE NEGATIVE 10/09/2018 [facility] Urine cannabinoids detection by screening method NEGATIVE NEGATIVE 10/09/2018 [facility] Urine methadone screen NEGATIVE NEGATIVE 10/09/2018 [facility] Urine urobilinogen measurement by test strip (mass/volume) 4 0.2 - 1 10/09/2018 [facility] Urine total bilirubin detection LARGE NEGATIVE 10/09/2018 [facility] Urine erythrocytes detection NEGATIVE NEGATIVE 10/09/2018 [facility] Automated urine sediment leukocyte count by microscopy (number/high power field) NONE 0 - 5 10/09/2018 [facility] Erythrocytes detection in urine sediment by light microscopy NONE 0 - 5 10/09/2018 [facility] Bacteria detection in urine sediment by light microscopy MODERATE NONE 10/09/2018 [facility] Epithelial cells detection in urine sediment by light microscopy NONE NONE 10/09/2018 [facility] Streptococcus pyogenes antigen detection in throat NEGATIVE NEGATIVE 10/09/2018 [facility] Bacterial throat culture Organism: STREPTOCOCCUS GROUP C 10/09/2018 [facility] RESULT positive 10/06/2018 [facility] RESULT negative 10/06/2018 [...] Pivot shift contusions without focal depression. 01/07/2015 SPEEDY Dior Knee 4+ views unilateral DX EXAM: Knee 4+ views unilateral HISTORY: M25.562 Pain in left knee COMPARISON: None Four views of the left knee. No fracture is seen. There is no evidence of soft tissue swelling. Alignment is normal. No osteochondral lesion is identified. There is a small joint effusion. IMPRESSION: No acute abnormality. 01/03/2015 NICOLASA Griffiths Consultation Notes No Data Provided for This [...] Provider ADM Date DC Date Status Source [facility] Out[facility] - [facility] [id number] Gm Auguste Jr 01/03/2015 01/04/2015 [facility] Outpatient Imaging [facility] [id number] Gm Auguste Jr 01/07/2015 01/08/2015 [facility] TM OP Therapy Patients [id number] Gm Auguste Jr 07/09/2015 08/08/2015 [facility] OP Therapy Patients [id number] Rolando Gao 08/08/2015 09/07/2015 [facility] OP Therapy Patients [id number] Rolando Gao 09/11/2015 10/11/2015 [facility] Outpatient Imaging [place] [facility] [id number] Rolando Gao 10/04/2015 10/05/2015 [facility] OP Therapy Patients [id number] Rolando Gao 01/12/2016 02/11/2016 [facility] OP Therapy Patients [id number] Rolando Gao 02/11/2016 03/12/2016 [facility] OP Therapy Patients [id number] Rolando Gao 03/15/2016 2016 [facility] [place] - [facility] - [id number] Usha Christina, [facility]: [id number] [place], [place] [address], Ph. [id number] Usha Christina 10/06/2018 [facility] Discharged Inpatient [id number] HILDA VELASCO MD 10/12/2018 10/13/2018 [facility] Procedures Procedure Code Date Perfomer Comments Source Computed tomography of brain without radiopaque contrast [id number] 10/10/2018 [place] [facility] X-ray of chest, two views [id number] 10/09/2018 [facility] Computed tomography of abdomen and pelvis with contrast [id number] 10/09/2018 [facility] Assessment and Plan No Data Provided for This Section Plan of Care Plan of Care Date Source Discharge Date 10/13/18 11:07am Disposition HOME, SELF-CARE Instructions/Education Provided Infectious Mononucleosis Prescriptions See Medication Section Additional Instructions/Education REGULAR DIET ACTIVITY TOLERATED F/U WITH PCP IN 1-2 WEEKS 10/13/2018 [facility] Social History Social History Date Source No social history information available. 10/13/2018 [facility] Smoking Status Never Smoker 10/06/2018 [facility] No data available for this section 2016 KHALIDA Griffiths No data available for this section 10/11/2015 [facility] No data available for this section 10/05/2015 NICOLASA Dior No data available for this section 01/04/2015 NICOLASA Griffiths Family History No Data Provided for This Section Advance Directives Order Name Results Value Date Source Advance Directives Advance Directives Directive Response Recorded Date/Time Does the patient have an advance directive? No 10/09/18 8:00pm If yes, is advance directive on file with [facility]? No 10/09/18 8:00pm If not on file with [facility] will patient provide a copy? No 10/09/18 8:00pm Do you have a Directive to Physician? No 10/09/18 1:49pm Do you have a Medical Power of Sound Art Instructor? No 10/09/18 1:49pm Do you have an out of hospital Do Not Resuscitate Order? No 10/09/18 1:49pm Do you have any special needs we should be aware of? No 10/09/18 1:49pm Do you have a support person here with you today? Yes 10/09/18 1:49pm Did patient receive Notice of Privacy Practices? Yes 10/09/18 1:49pm Did patient receive patient rights and responsibilities? Yes 10/09/18 1:49pm 10/13/2018 [facility] Functional Status No Data Provided for This Section
[2018-10-19 12:12] LABS: BASOPHILS # (AUTO) 0.1 (0.0-0.1); BASOPHILS % 0.8 % (0.0-1.0); EOSINOPHILS # (AUTO) 0.1 (0.0-0.4); EOSINOPHILS % 0.9 % (0.0-6.0); HEMATOCRIT 45.3 % (38.2-49.6); HEMOGLOBIN 15.3 g/dL (14.0-18.0); LYMPHOCYTES # (AUTO) 10.2 (1.0-3.2); LYMPHOCYTES % 73.9 % (18.0-39.1); MEAN CORPUSCULAR HEMOGLOBIN 28.1 pg (28-32); MEAN CORPUSCULAR HGB CONC 33.8 g/dL (31-35); MEAN CORPUSCULAR VOLUME 83.3 fL (81-99); MONOCYTES # (AUTO) 0.9 (0.2-0.8); MONOCYTES % 6.5 % (4.4-11.3); NEUTROPHILS # (AUTO) 2.4 (2.1-6.9); NEUTROPHILS % 17.7 % (38.7-80.0); PLATELET COUNT 177 x10e3/uL (140-360); RED BLOOD COUNT 5.44 x10e6/uL (4.3-5.7); RED CELL DISTRIBUTION WIDTH 15.8 % (11.7-14.4)
[2018-10-19 12:26] LABS: INR 0.86; PROTHROMBIN TIME 12.2 seconds (11.9-14.5)
[2018-10-19 12:27] LABS: PARTIAL THROMBOPLASTIN TIME 33.8 seconds (23.8-35.5)
[2018-10-19 12:30] LABS: BILIRUBIN,URINE LARGE (NEGATIVE); CLARITY,URINE SL CLOUDY (CLEAR); COLOR,URINE BROWN (YELLOW); KETONES,URINE NEGATIVE (NEGATIVE); LEUKOCYTE ESTERASE ,URINE NEGATIVE (NEGATIVE); NITRITE,URINE NEGATIVE (NEGATIVE); PROTEIN,URINE DIPSTICK 1+ (NEGATIVE); URINE UROBILINOGEN 1 mg/dL (0.2 - 1)
[2018-10-19 12:37] LABS: ALANINE AMINOTRANSFERASE 132 IU/L (0-55); ALBUMIN 3.3 g/dL (3.5-5.0); ALBUMIN/GLOBULIN RATIO 0.7 (0.8-2.0); ALKALINE PHOSPHATASE 334 IU/L (40-150); ANION GAP 15.4 mmol/L (8-16); BLOOD UREA NITROGEN 9 mg/dL (7-26); BUN/CREATININE RATIO 10 (6-25); CALCIUM 9.7 mg/dL (8.4-10.2); CARBON DIOXIDE 22 mmol/L (22-29); CHLORIDE 101 mmol/L (98-107); CREATININE, SERUM 0.88 mg/dL (0.72-1.25); EST GLOMERULAR FILTRATION RATE > 60 ML/MIN (60-); GLUCOSE 88 mg/dL (74-118); POTASSIUM 4.4 mmol/L (3.5-5.1); SODIUM 134 mmol/L (136-145)
[2018-10-19] MEDS ORDERED: ONDANSETRON HCL INJ 2MG/ML 2ML 2 MG/ML VIAL IV PRN (12:45)
[2018-10-19 12:56] LABS: BACTERIA,URINE FEW /HPF; EPITHELIAL CELLS,URINE RARE /LPF; RBC,URINE 0-5 /HPF (0-5); WBC,URINE (MAN) 0-5 /HPF (0-5)
[2018-10-19] MEDS: SODIUM CHLORIDE 0.9% 1000ML 1,000 ML IV SCH (13:00)
[2018-10-19] MEDS ORDERED: MORPHINE SULFATE INJ 4 MG/ML INJ 1ML IV PRN (13:00)
--- OUTSIDE RECORDS SUMMARY | 2018-10-19 13:11 | XMS REPORT | Continuity of Care Document ---
Author Author [employer]) Address Unknown Phone Unavailable Care Team Providers Care Security Clerk Name Role Phone Alektrona Information [facility] Unavailable Unavailable Problems Problem Status Onset Date [...] PAIN IN LEFT KNEE Active 01/03/2015 [facility] LEFT KNEE ACL TEAR/SX 01/16/15 Active 01/02/2015 [facility] Mononucleosis Active Problem 10/13/2018 [facility] Transaminitis Active Problem 10/13/2018 [facility] LT KNEE POST OP Active [facility] LT ACL PARTIAL TEAR Active [facility] LT ACL Active [facility] Medications Medication Details Route Status Patient Instructions Ordering Provider Order Date Source Guaifenesin/Dextromethorphan (Mucinex Dm Er 600-30 Mg Tablet) 1 Each Tab.er.12h Every 12 Hours as needed for Cough Active Edwin 10/13/2018 [facility] Acetaminophen/Codeine Phosphate (Tylenol # 3*) 1 Ea Tab Every 8 Hours as needed for Headache Active [place] 10/12/2018 [facility] Amoxicillin 500 Mg Capsule Every 8 Hours Active Edwin 10/12/2018 [facility] Ondansetron Hcl (Zofran*) 4 Mg Tablet Every 12 Hours Active [place] 10/12/2018 [facility] Albuterol Sulfate (Proair Hfa Inhaler*) 8.5 Gm Inh, 1-2 Pump Inhalation Every 6 Hours as needed for Shortness Of Breath Inactive Jeni 10/09/2018 [facility] Prednisone 20 Mg Tab, 40 Mg Oral Daily Inactive Jeni 10/09/2018 [facility] No Medications Reported No Medications Reported Active [facility] Allergies, Adverse Reactions, Alerts No Known Medication Allergies Immunizations No Data Provided for This Section Results Order Name Results Value Reference Range Date Interpretation Comments Source Blood leukocytes automated count (number/volume) 13.30 4.8 - 10.8 10/13/2018 [facility] Blood erythrocytes automated count (number/volume) 4.54 4.3 - 5.7 10/13/2018 [facility] Blood hemoglobin measurement (moles/volume) 12.8 14.0 - 18.0 10/13/2018 [facility] Automated blood hematocrit (volume fraction) 37.4 38.2 - 49.6 10/13/2018 [facility] Automated erythrocyte mean corpuscular volume 82.4 81 - 99 10/13/2018 [facility] Automated erythrocyte mean corpuscular hemoglobin (mass per erythrocyte) 28.2 28 - 32 10/13/2018 [facility] Automated erythrocyte mean corpuscular hemoglobin concentration measurement (mass/volume) 34.2 31 - 35 10/13/2018 [facility] RDW BldCo-Rto 14.6 11.7 - 14.4 10/13/2018 [facility] Automated blood platelet count (count/volume) 106 140 - 360 10/13/2018 [facility] Automated blood segmented neutrophil count as percentage of total leukocytes 10.4 38.7 - 80.0 10/13/2018 [facility] Automated blood lymphocyte count as percentage ot total leukocytes 76.5 18.0 - 39.1 10/13/2018 [facility] Automated blood monocyte count as percentage of total leukocytes 11.0 4.4 - 11.3 10/13/2018 [facility] Automated blood eosinophil count as percentage of total leukocytes 0.6 0.0 - 6.0 10/13/2018 [facility] Automated blood basophil count as percentage of total leukocytes 0.9 0.0 - 1.0 10/13/2018 [facility] IM GRANULOCYTES % 0.6 0.0 - 1.0 10/13/2018 [facility] Automated blood neutrophil count 1.4 2.1 - 6.9 10/13/2018 [facility] Blood lymphocytes count (number/volume) 10.2 1.0 - 3.2 10/13/2018 [facility] Blood monocytes automated count (number/volume) 1.5 0.2 - 0.8 10/13/2018 [facility] Automated blood eosinophil count 0.1 0.0 - 0.4 10/13/2018 [facility] Automated blood basophil count (count/volume) 0.1 0.0 - 0.1 10/13/2018 [facility] Absolute Immature Granulocyte (auto 0.08 0 - 0.1 10/13/2018 [facility] Differential Total Cells Counted 100 10/13/2018 [facility] Manual blood neutrophils/100 leukocytes 15 40 - 74 10/13/2018 [facility] Manual blood lymphocytes/100 leukocytes 63 19 - 48 10/13/2018 [facility] Manual blood monocytes/100 leukocytes 6 3.4 - 9.0 10/13/2018 [facility] Blood lymphocytes variant count (number/volume) 16 10/13/2018 [facility] Blood platelets count by estimate (number/volume) SLIGHTLY DECREASED 10/13/2018 [facility] Platelet morphology NORMAL 10/13/2018 [facility] Blood poikilocytosis detection by light microscopy S 10/13/2018 [facility] Blood anisocytosis detection by light microscopy S 10/13/2018 [facility] RBC morphology NORMAL 10/13/2018 [facility] Serum or plasma sodium measurement (moles/volume) 137 136 - 145 10/13/2018 [facility] Serum or plasma potassium measurement (moles/volume) 3.5 3.5 - 5.1 10/13/2018 [facility] Serum or plasma chloride measurement (moles/volume) 103 98 - 107 10/13/2018 [facility] Serum or plasma carbon dioxide, total measurement (moles/volume) 23 22 - 29 10/13/2018 [facility] Serum or plasma anion gap 14.5 8 - 16 10/13/2018 [facility] Serum or plasma urea nitrogen measurement (mass/volume) < 5 7 - 26 10/13/2018 [facility] Serum or plasma creatinine measurement (mass/volume) 0.92 0.72 - 1.25 10/13/2018 [facility] Serum or plasma urea nitrogen/creatinine mass ratio 5 6 - 25 10/13/2018 [facility] Estimated glomerular filtration rate (GFR) determination > 60 60 10/13/2018 [facility] Glucose measurement 91 74 - 118 10/13/2018 [facility] Serum or plasma calcium measurement (mass/volume) 8.8 8.4 - 10.2 10/13/2018 [facility] Serum or plasma total bilirubin measurement (mass/volume) 9.9 0.2 - 1.2 10/13/2018 [facility] Serum or plasma conjugated bilirubin measurement (mass/volume) 7.6 0.0 - 0.5 10/13/2018 [facility] Aspartate Amino Transf (AST/SGOT) 123 5 - 34 10/13/2018 [facility] Serum or plasma alanine aminotransferase measurement (enzymatic activity/volume) 149 0 - 55 10/13/2018 [facility] Serum or plasma protein measurement (mass/volume) 6.5 6.5 - 8.1 10/13/2018 [facility] Serum or plasma albumin measurement (mass/volume) 2.9 3.5 - 5.0 10/13/2018 [facility] Serum or plasma alkaline phosphatase measurement (enzymatic activity/volume) 294 40 - 150 10/13/2018 [facility] Manual blood eosinophil count as percentage of total leukocytes 1 0 - 7 10/11/2018 [facility] Serum or plasma creatine kinase measurement (enzymatic activity/volume) 50 30 - 200 10/10/2018 [facility] Serum or plasma creatine kinase MB measurement (mass/volume) 0.60 0 - 5.0 10/10/2018 [facility] Troponin I measurement by highly sensitive enzyme immunoassay 0.004 0 - 0.300 10/10/2018 [facility] Phosphorus measurement 2.6 2.3 - 4.7 10/10/2018 [facility] Serum or plasma magnesium measurement (mass/volume) 1.9 1.3 - 2.1 10/10/2018 [facility] Plasma globulin measurement (mass/volume) 3.6 2.3 - 3.5 10/10/2018 [facility] Serum or plasma albumin/globulin mass ratio 0.9 0.8 - 2.0 10/10/2018 [facility] Serum or plasma triglyceride measurement (mass/volume) 245 0 - 149 10/10/2018 [facility] Serum or plasma cholesterol measurement (mass/volume) 103 0 - 199 10/10/2018 [facility] Serum or plasma cholesterol in LDL measurement (mass/volume) 47 60 - 130 10/10/2018 [facility] Serum or plasma cholesterol in HDL measurement (mass/volume) 7 40 - 60 10/10/2018 [facility] Serum or plasma total cholesterol/cholesterol in HDL mass ratio 14.7 3.9 - 4.7 10/10/2018 [facility] Serum heterophile antibody titer by latex agglutination NEGATIVE NEGATIVE 10/10/2018 [facility] Serum or plasma hepatitis A virus IgM antibody detection by immunoassay Negative Negative 10/10/2018 [facility] Serum or plasma hepatitis B virus surface antigen detection by immunoassay Negative Negative 10/10/2018 [facility] Serum or plasma hepatitis B virus core IgM antibody detection by immunoassay Negative Negative 10/10/2018 [facility] Serum hepatitis C virus antibody detection 0.1 0.0 - 0.9 10/10/2018 [facility] Blood culture NO GROWTH AFTER 72 HOURS 10/10/2018 [facility] Serum Vickey Tejada virus capsid IgM antibody assay (units/volume) >160.0 0.0 - 35.9 10/09/2018 [facility] Serum Vickey Tejada virus early IgG antibody assay (units/volume) 61.1 0.0 - 8.9 10/09/2018 [facility] Serum Vickey Tejada virus capsid IgG antibody assay (units/volume) 56.2 0.0 - 17.9 10/09/2018 [facility] Serum Vickey Tejada virus nuclear IgG antibody assay (units/volume) <18.0 0.0 - 17.9 10/09/2018 [facility] Interpretation of Vickey-Tejada virus antibody panel Comment . 10/09/2018 [facility] Serum or plasma amylase measurement (enzymatic activity/volume) 66 25 - 125 10/09/2018 [facility] Serum or plasma lipase measurement (enzymatic activity/volume) 33 8 - 78 10/09/2018 [facility] Serum or plasma acetaminophen measurement by screening method (mass/volume) < 3 10 - 30 10/09/2018 [facility] Urine color determination ORANGE YELLOW 10/09/2018 [facility] Urine clarity CLOUDY CLEAR 10/09/2018 [facility] Specific gravity of Urine by Test strip 1.015 1.010 - 1.025 10/09/2018 [facility] Urine pH measurement by automated test strip 6.5 5 - 7 10/09/2018 [facility] Urine leukocyte esterase detection by automated test strip NEGATIVE NEGATIVE 10/09/2018 [facility] Urine nitrite detection by automated test strip NEGATIVE NEGATIVE 10/09/2018 [facility] Urine protein detection by automated test strip 1+ NEGATIVE 10/09/2018 [facility] Urine glucose detection by automated test strip 1+ NEGATIVE 10/09/2018 [facility] Urine ketones detection by automated test strip 2+ NEGATIVE 10/09/2018 [facility] Urine opiates screening test NEGATIVE NEGATIVE 10/09/2018 [facility] Barbiturates screen, urine NEGATIVE NEGATIVE 10/09/2018 [facility] Urine phencyclidine detection by screening method NEGATIVE NEGATIVE 10/09/2018 [facility] Urine amphetamines detection by screen method > 1000 ng/mL NEGATIVE NEGATIVE 10/09/2018 [facility] Urine Methamphetamines Screen NEGATIVE NEGATIVE 10/09/2018 [facility] Urine benzodiazepines detection by screening method NEGATIVE NEGATIVE 10/09/2018 [facility] Urine cocaine measurement (mass/volume) NEGATIVE NEGATIVE 10/09/2018 [facility] Urine cannabinoids detection by screening method NEGATIVE NEGATIVE 10/09/2018 [facility] Urine methadone screen NEGATIVE NEGATIVE 10/09/2018 [facility] Urine urobilinogen measurement by test strip (mass/volume) 4 0.2 - 1 10/09/2018 [facility] Urine total bilirubin detection LARGE NEGATIVE 10/09/2018 [facility] Urine erythrocytes detection NEGATIVE NEGATIVE 10/09/2018 [facility] Automated urine sediment leukocyte count by microscopy (number/high power field) NONE 0 - 5 10/09/2018 [facility] Erythrocytes detection in urine sediment by light microscopy NONE 0 - 5 10/09/2018 [facility] Bacteria detection in urine sediment by light microscopy MODERATE NONE 10/09/2018 [facility] Epithelial cells detection in urine sediment by light microscopy NONE NONE 10/09/2018 [facility] Streptococcus pyogenes antigen detection in throat NEGATIVE NEGATIVE 10/09/2018 [facility] Bacterial throat culture Organism: STREPTOCOCCUS GROUP C 10/09/2018 [facility] RESULT positive 10/06/2018 [facility] RESULT negative 10/06/2018 [...] Provider ADM Date DC Date Status Source [facility] [id number] Gm Auguste Jr 01/03/2015 01/04/2015 [facility] [id number] Gm Auguste Jr 01/07/2015 01/08/2015 [facility] OP Therapy Patients [id number] Gm Auguste Jr 07/09/2015 08/08/2015 [facility] OP Therapy Patients [id number] Rolando Gao 08/08/2015 09/07/2015 [facility] OP Therapy Patients [id number] Rolando Gao 09/11/2015 10/11/2015 [facility] Out[facility] [id number] Rolando Gao 10/04/2015 10/05/2015 [facility] Patients [id number] Rolando Gao 01/12/2016 02/11/2016 [facility] Patients [id number] Rolando Gao 02/11/2016 03/12/2016 [facility] Patients [id number] Rolando Gao 03/15/2016 2016 [facility] [place] - [id number] Usha Christina, [facility]: [id number] [place], [place] [address], Ph. [id number] Usha Christina 10/06/2018 [facility] Discharged Inpatient [id number] HILDA VELASCO MD 10/12/2018 10/13/2018 [facility] Procedures Procedure Code Date Perfomer Comments Source Computed tomography of brain without radiopaque contrast [id number] 10/10/2018 [facility] X-ray of chest, two views [id number] 10/09/2018 [facility] Computed tomography of abdomen and pelvis with contrast [id number] 10/09/2018 [facility] Assessment and Plan No Data Provided for This Section Plan of Care Plan of Care Date Source Discharge Date 10/13/18 11:07am Disposition HOME, SELF-CARE Instructions/Education Provided Infectious Mononucleosis Prescriptions See Medication Section Additional Instructions/Education REGULAR DIET ACTIVITY TOLERATED F/U WITH PCP IN 1-2 WEEKS 10/13/2018 [facility] Social History Social History Date Source No social history information available. 10/13/2018 [facility] Smoking Status Never Smoker 10/06/2018 [facility] No data available for this section 2016 KHALIDA [facility] No data available for this section 10/11/2015 [facility] No data available for this section 10/05/2015 NICOLASA Dior No data available for this section 01/04/2015 NIC[facility]ASA [facility] Family History No Data Provided for This Section Advance Directives Order Name Results Value Date Source Advance Directives Advance Directives Directive Response Recorded Date/Time Does the patient have an advance directive? No 10/09/18 8:00pm If yes, is advance directive on file with [facility]? No 10/09/18 8:00pm If not on file with [facility] will patient provide a copy? No 10/09/18 8:00pm Do you have a Directive to Physician? No 10/09/18 1:49pm Do you have a Medical Power of Hose Finisher? No 10/09/18 1:49pm Do you have an [...] rights and responsibilities? Yes 10/09/18 1:49pm 10/13/2018 [facility] Functional Status No Data Provided for This Section
[2018-10-19 13:37] LABS: AMPHETAMINES SCREEN,URINE NEGATIVE (NEGATIVE); BENZODIAZEPINES SCREEN,URINE NEGATIVE (NEGATIVE); PHENCYCLIDINE SCREEN,URINE NEGATIVE (NEGATIVE)
[2018-10-19 14:47] LABS: HIV 1&2 AB SCREEN NON-REACTIVE (NONREACTIVE)
[2018-10-19] MEDS ORDERED: MORPHINE SULFATE 2 MG/ML SYR 1ML IV PRN (15:00)
[2018-10-19] MEDS ORDERED: DIPHENHYDRAMINE HCL INJ 50 MG/ML VIAL IV PRN (15:00)
[2018-10-19] MEDS: CEFAZOLIN SOD 1 GM/NS 50ML 50 ML IV SCH ×2 (15:03→20:59)
--- NOTE | 2018-10-19 15:34 | Diagnostic Imaging Report ---
EXAM: Right upper quadrant abdominal ultrasound INDICATION: Right upper quadrant pain COMPARISON: None. TECHNIQUE: Transverse and longitudinal images of the right upper quadrant abdomen were obtained FINDINGS: Liver: Size: 18.2 cm in the right midclavicular line, normal Appearance: Normal echogenicity, smooth contour Mass: No focal masses Gallbladder: No gallbladder distension, pericholecystic fluid, wall thickening, stone, or reported sonographic Jarvis's sign. Small amount of sludge in the gallbladder. Gallbladder wall measures 0.3 cm. Bile Ducts: Intrahepatic Ducts: No dilatation Extrahepatic Ducts: Common bile duct measures 0.3cm. Pancreas: Visualized portions of the pancreatic head, neck and proximal body are normal. Kidney: The right kidney measures 12.7 cm without evidence of hydronephrosis or stone. Vessels: Aorta: Visualized portions are normal Inferior Vena Cava: Visualized portions are normal Main Portal Vein: 1.0 cm, normal size with hepatopetal flow. Free Fluid: No ascites or pleural effusion IMPRESSION: Small amount of sludge in the gallbladder. No sonographic evidence of cholecystitis. Signed by: Jus Mota MD on 10/19/2018 3:31 PM
[2018-10-19] MEDS: FAMOTIDINE 20 MG/2 ML VIAL IV SCH (17:52)
[2018-10-19 18:20] VITALS: BP 132/67
[2018-10-19 18:22] VITALS: BP 132/67
--- NOTE | 2018-10-19 18:25 | NUR ---
PATIENT ARRIVED FROM ER TO ROOM 294. HE IS IN STABLE CONDITION. MOTHER AT BEDSIDE. PATIENT AND MOTHER ORIENTED TO ROOM AND POLICIES. CALL LIGHT WITHIN REACH. BED IN THE LOWEST POSITION.
--- NOTE | 2018-10-19 18:45 | NUR ---
PAGED DR. RAMESH FOR ORDERS, PATIENT IS C/O THROAT PAIN.
[2018-10-19] MEDS ORDERED: MAALOX/LIDOCAINE/BENADRYL/NYST 30 ML BTL PO PRN (19:00)
--- NOTE | 2018-10-19 19:02 | NUR ---
INFORMED DR. RAMESH OF PATIENT HAVING A TEMP. OF 100.6, ORDERED SOLU-MEDROL 40MG IV Q12H.
--- NOTE | 2018-10-19 19:10 | NUR ---
REPORT GIVEN TO ONCOMING NURSE, WALKING ROUNDS DONE. PATIENT IS SITTING UP IN CHAIR EATING. CALL LIGHT WITHIN REACH.
[2018-10-19] MEDS ORDERED: IBUPROFEN 400 MG TAB PO PRN (19:15)
[2018-10-19 19:16] VITALS: BP 129/60
--- NOTE | 2018-10-19 19:16 | NUR ---
PT IS RESTING IN BED. RESPIRATION IS EVEN AND UNLABORED, NO DISTRESS NOTED. BED IN THE LOWEST POSITION, LOCKED, AND CALL LIGHT WITHIN REACH. WILL CONTINUE TO MONITOR.
[2018-10-19 20:00] VITALS: BP 129/60
--- NOTE | 2018-10-19 20:17 | Consultation ---
DATE OF CONSULTATION: REASON FOR CONSULTATION: Hepatitis and pharyngitis, concerned about EBV. HISTORY OF PRESENT ILLNESS: This patient who is a 18-year-old white gentleman, no past medical history. His problem started back on October 02 when he had a fever, chills, and body aches, and he went to his physician because he was not doing well, told him to get bedrest, take Tylenol, but then he started to become icteric and he was diagnosed with EBV. The patient was not doing well. He went to his doctor, who told him to come to the emergency room. The patient was admitted on October 09 until October 14 and he was diagnosed with EBV. The patient was told just to push p.o. fluid. But, the patient apparently was getting progressively worse with the sore throat, so he has come back here. I did see him in the emergency room. His mother is at the bedside. I reviewed his laboratory data when he was here back in October 09. His EBV IgG was 56. His IgM was 160. Hepatitis A, B, and C were negative. Group A strep was negative. His urine was positive for opiate. His sodium 134, potassium 4.4, and his creatinine 0.88. Total bilirubin today was 10, when he was back here on 10/09 it was 8.6. Currently his lab data: White count 13.77, hemoglobin 15, hematocrit 45, and his platelet 177. Sodium 134, potassium 4.4, creatinine 0.88, bilirubin of 10, AST 121, and ALT 132. His protein is 8.1. PAST MEDICAL HISTORY: Denies. PAST SURGICAL HISTORY: Denies. SOCIAL HISTORY: He denies smoking, drug abuse, or alcohol abuse. FAMILY HISTORY: Otherwise noncontributory. REVIEW OF SYSTEMS: He has sore throat, tonsils enlarged, feeling okay, but not really bad, but not really good. Icteric. Urine is brown. At the present time, besides what is mentioned above: HEENT: There is no visual change or hearing changes. GI: There is no nausea. No vomiting. No diarrhea. CARDIAC: There is no arrhythmia. NEURO: No seizure activity. All other symptoms are within normal limits. PHYSICAL EXAMINATION: GENERAL: He is currently alert, oriented, does not seem to be in acute distress. VITAL SIGNS: Stable, currently afebrile. Temperature 98.1, heart rate of 58, and respirations of 17. HEENT: He does not appear icteric, but he did have enlarged tonsils bilateral. CHEST: Clear bilateral. HEART: S1, S2. No S3, S4, or murmur. ABDOMEN: Soft. Bowel sounds present. No tenderness. No hepatosplenomegaly that I can feel. EXTREMITIES: No edema. SKIN: There is no rash. IMPRESSION: 1. Vickey-Tejada virus. 2. Hepatitis, progressing. RECOMMENDATIONS: Recommend IV fluid and multivitamin. We will put the patient on Ancef for tonsillitis, obtain blood culture, obtain ultrasound of the liver and the spleen. Bedrest for now. Serial lab tests. We will follow. Discussed with the patient. MD CLEO Robin/DARWIN /[id number]
[2018-10-19] MEDS: METHYLPREDNISOLONE SOD SUCC 40 MG/ML VIAL 1ML IV SCH (20:59)
[2018-10-19] MEDS ORDERED: ZOLPIDEM TARTRATE 5 MG TAB PO PRN (21:00)
[2018-10-19] MEDS: DIPHENHYDRAMINE HCL 25 MG CAP PO PRN (23:32)
[2018-10-20] VITALS (8 sets, daily range): BP systolic 116–149; BP diastolic 54–75
[2018-10-20] MEDS: SODIUM CHLORIDE 0.9% 1000ML 1,000 ML IV SCH ×2 (02:24→15:00)
[2018-10-20] MEDS: CEFAZOLIN SOD 1 GM/NS 50ML 50 ML IV SCH ×3 (05:07→22:45)
[2018-10-20 06:24] LABS: BASOPHILS # (AUTO) 0.1 (0.0-0.1); BASOPHILS % 0.7 % (0.0-1.0); LYMPHOCYTES # (AUTO) 7.2 (1.0-3.2); LYMPHOCYTES % 68.7 % (18.0-39.1); MEAN CORPUSCULAR HEMOGLOBIN 27.5 pg (28-32); MEAN CORPUSCULAR HGB CONC 32.6 g/dL (31-35); MEAN CORPUSCULAR VOLUME 84.5 fL (81-99); MONOCYTES # (AUTO) 0.6 (0.2-0.8); MONOCYTES % 5.4 % (4.4-11.3); NEUTROPHILS # (AUTO) 2.6 (2.1-6.9); PLATELET COUNT 191 x10e3/uL (140-360); RED BLOOD COUNT 5.09 x10e6/uL (4.3-5.7); RED CELL DISTRIBUTION WIDTH 15.3 % (11.7-14.4)
[2018-10-20 06:44] LABS: ALANINE AMINOTRANSFERASE 118 IU/L (0-55); ALBUMIN/GLOBULIN RATIO 0.7 (0.8-2.0); ALKALINE PHOSPHATASE 302 IU/L (40-150); ANION GAP 13.5 mmol/L (8-16); BLOOD UREA NITROGEN 12 mg/dL (7-26); BUN/CREATININE RATIO 13 (6-25); CALCIUM 9.4 mg/dL (8.4-10.2); CARBON DIOXIDE 23 mmol/L (22-29); CHLORIDE 100 mmol/L (98-107); EST GLOMERULAR FILTRATION RATE > 60 ML/MIN (60-); GLUCOSE 127 mg/dL (74-118); POTASSIUM 4.5 mmol/L (3.5-5.1); SODIUM 132 mmol/L (136-145)
--- NOTE | 2018-10-20 07:30 | NUR ---
PT SLEEPING NO DISTRESS NOED NO S/S DISCOMFORT,SLIGHTLY JAUNDICE
[2018-10-20 07:53] LABS: ANISOCYTOSIS SLIGHT; LYMPHOCYTES % (MANUAL) 71 % (19-48); MONOCYTES % (MANUAL) 7 % (3.4-9.0); NEUTROPHILS % (MANUAL) 20 % (40-74); PLATELET ESTIMATE ADEQUATE; PLATELET MORPHOLOGY COMMENT NORMAL; RBC MORPHOLOGY COMMENT ABNORMAL; SMUDGE CELLS FEW
[2018-10-20] MEDS: METHYLPREDNISOLONE SOD SUCC 40 MG/ML VIAL 1ML IV SCH ×2 (08:50→21:10)
[2018-10-20] MEDS: FAMOTIDINE 20 MG/2 ML VIAL IV SCH ×2 (08:56→17:23)
[2018-10-20] MEDS: MULTIVITAMINS/MINERALS TAB PO SCH (08:56)
[2018-10-20] MEDS ORDERED: SODIUM CHLORIDE 0.9% 100 ML 100 ML ONE (09:02)
[2018-10-20] MEDS ORDERED: GADOBENATE DIMEGLUMINE 1 ML IV ONE (09:02)
--- NOTE | 2018-10-20 10:35 | Diagnostic Imaging Report ---
MRI/MRCP of the abdomen, with and without contrast. History: Jaundice, abdominal pain, fever, mononucleosis. Comparison: CT 10/09/2018, ultrasound 10/19/2018. Technique: Proton density weighted coronal and axial imaging of the abdomen was performed pre contrast was performed post-IV administration of 20 cc of gadolinium. Volume rendering and MIP reformations were obtained. MRCP fat-saturated sequence was performed post contrast with MIP reformations. Discussion: The spleen is enlarged measuring 18 cm in length. A 9 mm cyst is present in the superior portion of the spleen. There is no enhancing splenic lesion. There is normal appearance of the liver, gallbladder, pancreas, adrenal glands, and kidneys. There is no enhancing hepatic lesion. No filling defects are seen within the gallbladder and there is no evidence of gallbladder wall thickening. The aorta, celiac trunk, SMA, and SYEDA are normal. A retroaortic left renal vein is noted. MRCP demonstrates normal appearance of the gallbladder, intrahepatic biliary ducts, and and common bile duct which measures 3 mm in diameter. IMPRESSION: Splenomegaly with a small simple cyst. Otherwise normal MRI/MRCP of the abdomen. No evidence of cholelithiasis, cholecystitis, or choledocholithiasis. Signed by: Jared Hinds on 10/20/2018 10:32 AM
--- NOTE | 2018-10-20 11:20 | NUR ---
DR MOORE HERE,DR RAMESH HERE
--- NOTE | 2018-10-20 12:11 | Progress Note ---
DATE: SUBJECTIVE: Mr. Douglas is feeling slightly better today. There is no new complaint. His throat is much better. He had fever yesterday. The patient was started on steroid yesterday. At the present time, he is lying in bed, feeling better. Mother at the bedside, discussed with Internal Medicine, discussed with the patient and his mother. LABORATORY DATA: Reviewed. His white count came down from 13.7 to 10.54, hemoglobin 14, hematocrit 43. His platelet is 191. He had 10.2 lymphocyte yesterday, 0.9, monocyte. Sodium 132, potassium 4.5. His bilirubin came down from 10 to 7.8. His liver enzymes came down from 121 to 98. AST, ALT from 132 to 118. HIV was nonreactive. His abdominal ultrasound had a small amount of sludge in gallbladder. No evidence of cholecystitis. He had an MRCP which was splenomegaly with small pseudocyst, otherwise normal. REVIEW OF SYSTEMS: Otherwise negative. PHYSICAL EXAMINATION: GENERAL: He is currently alert, oriented, does not seem to be in acute distress. VITAL SIGNS: Stable, afebrile. HEENT: He is not icteric. The tonsils are much better. NECK: Supple. No JVD. No lymphadenopathy. No thyromegaly. CHEST: Clear bilaterally. HEART: S1, S2. No S3, S4, or murmur. ABDOMEN: Soft. Bowel sounds present. No tenderness. EXTREMITIES: Edema. IMPRESSION: 1. Severe case of infectious mononucleosis. 2. Tonsillitis. Continue current choice of antibiotic. Weekend should improve. Watch him for another day or two, maybe can switch to oral Keflex and steroid soon. MD CLEO Robin/DARWIN /[id number]
--- NOTE | 2018-10-20 14:27 | History and Physical ---
CHIEF COMPLAINT: Jaundice, fever. HISTORY OF PRESENT ILLNESS: This is a 18-year-old male, recently diagnosed with mononucleosis, who was just recently admitted and discharged, now presents with worsening jaundice, scleral icterus, and fever at home. According to the patient and the mother at bedside, they report that the patient was discharged last week and he had some underlying jaundice at that time, but was discharged to home. Family went to their primary care physician and the patient looked significantly jaundiced and was told to come to the hospital for further evaluation and management. While here, the patient was found to have elevated LFTs requiring ID and GI consultation. The patient is currently seen and evaluated at bedside on the medical floor, he is currently doing much better today with no other issues. He did develop some fever last night. ID did see him, started on IV antibiotics. MRCP had been ordered by GI specialist. I spoke with the Infectious Disease, this is a pretty bad case of mononucleosis and at this time, the patient's symptoms have improved tremendously according to the patient. REVIEW OF SYSTEMS: Pertinent positives: Throat pain, fever. Pertinent negatives: Denies any chest pain, palpitation, nausea, vomiting, diarrhea, dysuria, hematuria, frequency, urgency, lightheadedness, dizziness, abdominal pain, headache, shortness of breath, cough, congestion, or any other complaints. The rest of 14-point review of systems have been reviewed with the patient and are negative. ALLERGIES: NO KNOWN DRUG ALLERGIES. HOME MEDICATIONS: None. PAST MEDICAL HISTORY: He reports none. PAST SURGICAL HISTORY: None. FAMILY HISTORY: Hypertension and diabetes. SOCIAL HISTORY: No drugs. No alcohol. Does not smoke. Good social support. PHYSICAL EXAMINATION: VITAL SIGNS: T-max 100.6, current temperature is 97.1, pulse 55, respiratory rate is 18, blood pressure 119/52, and pulse ox 98% on room air. GENERAL: Not in acute distress. Alert and oriented x3. Cooperative on examination. HEENT: Head is normocephalic and atraumatic. Eyes; pupils are equal, round, and reactive to light bilaterally. Extraocular movements are intact bilaterally. Throat, no evidence of erythema or exudates in the posterior pharynx. Has poor dentition. NECK: Supple. Good range of motion. PULMONARY: Clear to auscultation bilaterally. No wheezing, no rales, no rhonchi, no crackles appreciated. CARDIOVASCULAR: Positive S1, S2. No murmurs, rubs, or gallops appreciated. ABDOMEN: Soft, nondistended, and nontender to palpation. Bowel sounds present. MUSCULOSKELETAL: Strength is 5/5 throughout. No evidence of any muscle deficits on examination. No weakness appreciated. NEUROLOGICAL: Cranial nerves 2 through 12 grossly intact. No evidence of any neurological deficits on exam. SKIN: Intact. Warm to touch. Good cap refill. PSYCHIATRIC: Normal affect and mood. EXTREMITIES: No edema. Good range of motion throughout. LABORATORY DATA: Lab findings show white count was 10.5, hemoglobin 14, hematocrit is 43, platelets were 191. PT 12, INR 0.86, PTT 33. Chemistry; sodium 132, potassium 4.5, chloride 100, bicarb 23, anion gap 13, BUN is 12, creatinine is 0.9, glucose 127, calcium 9.4. His total bilirubin was 10 on admission, now 7.8; AST 121, now 98; ALT was 132, now 118; alkaline phosphatase 302; total protein 7.9; albumin 3. Urinalysis was found to be just evidence of bilirubin in the urine, 1+ protein. Urine drug screen positive for opioids. HIV was nonreactive. MICROBIOLOGY: None. IMAGING STUDIES: Abdominal ultrasound shows small amount of sludge in the gallbladder, no sonographic evidence of cholecystitis. MRCP was performed, shows splenomegaly with a small simple cyst, otherwise normal MRCP exam. No evidence of cholelithiasis, cholecystitis, or choledocholithiasis. IMPRESSION: 1. Vickey-Tejada virus mononucleosis. 2. Probable acute tonsillitis with probable bacterial etiology as well. 3. Fever. 4. Splenomegaly. 5. Elevated transaminases secondary to Vickey-Tejada virus. PLAN: At this time, I spoke with ID. This is likely to be mononucleosis EBV. We will continue with IV antibiotic in the event he has bacterial etiology of his tonsillitis. He is on IV steroids with much improvement. We are going to have to abort any hepatotoxicity medications. GI was consulted, ordered MRCP, found to be normal. His LFTs are improving tremendously. We also talked with the patient about high contact sports as his MRCP is consistent with splenomegaly and he was advised not to do any high contact sports. We will continue with cefazolin per ID recommendations. We will decrease his IV fluids. Advance diet to regular as well. Encourage ambulation. We will continue same plan of care and follow up with consultants, GI and Infectious Disease. I talked with the patient and his mom at bedside using the nursing staff present and they verbalized understanding and agreed to plan of care. MD CONOR Reyes/DARWIN /[id number]
--- NOTE | 2018-10-20 17:55 | NUR ---
PT UP IN BED DENIES PAIN,TOLERATED REG DIET WELL.
--- NOTE | 2018-10-20 18:57 | NUR ---
Nutrition Screen Note RD Recommendation for Physician: The patient meets criteria for MODERATE protein-calorie malnutrition with 12lbs weight loss and decreased meal intake. -Continue current diet as ordered Plan of Care: RD following, monitoring for tolerance and adequacy Nutrition reason for involvement: Nutrition Risk Trigger MST Primary Diagnose(s): 1. Vickey-Tejada virus mononucleosis. 2. Probable acute tonsillitis with probable bacterial etiology as well. 3. Fever. 4. Splenomegaly. 5. Elevated transaminases secondary to Vickey-Tejada virus. PMH: None Ht: 73in Wt: 208lb BMI: 27.4kg/m2 IBW: 184lb +/- 10% RD Assessment: (10/20) Chart reviewed. Labs and meds reviewed. 18yo M, who, was admitted for mononucleosis with nausea and poor appetite. Visited pt in the room. Diet has been advanced to regular. Pt reported improvement in his appetite and was eating [place] during my visit. Pt denied any nausea or vomiting today. Pt denied any chewing or swallowing difficulty. Pt has lost ~12lbs in the last 2 weeks with decreased meal intake. Mother has been bringing foods from outside. Current diet is appropriate and adequate. No nutrition intervention needed at this time. Current Diet: regular diet Malnutrition Evaluation (10/20/2018) The patient meets criteria for MODERATE protein-calorie malnutrition. Energy intake: <75% of estimated energy requirements for >7 days Weight loss: >2% in 1week (Acute) Fat loss: none Muscle loss: none Supporting Evidence: Fluid accumulation: none Functional Status: no changes Diet Education Needs Assessment: Diet education not indicated. Nutrition Care Level: low Signed: Heydi Ibarra, MS, RD, LD
--- NOTE | 2018-10-20 19:00 | NUR ---
Completed nursing report with morning nurse. Pt alert and oriented to name. Denies pain at this time. Lying on bed HOB flat. Family at bedside. Will continue to monitor.
[2018-10-21] VITALS (8 sets, daily range): BP systolic 111–143; BP diastolic 54–63
[2018-10-21] MEDS: DIPHENHYDRAMINE HCL 25 MG CAP PO PRN ×2 (04:52→21:10)
[2018-10-21 05:52] LABS: BASOPHILS % 0.3 % (0.0-1.0); EOSINOPHILS # (AUTO) 0.1 (0.0-0.4); HEMATOCRIT 40.3 % (38.2-49.6); HEMOGLOBIN 13.1 g/dL (14.0-18.0); LYMPHOCYTES # (AUTO) 4.1 (1.0-3.2); LYMPHOCYTES % 58.5 % (18.0-39.1); MEAN CORPUSCULAR HEMOGLOBIN 27.6 pg (28-32); MEAN CORPUSCULAR HGB CONC 32.5 g/dL (31-35); MONOCYTES # (AUTO) 0.7 (0.2-0.8); MONOCYTES % 9.3 % (4.4-11.3); NEUTROPHILS # (AUTO) 2.1 (2.1-6.9); NEUTROPHILS % 30.8 % (38.7-80.0); PLATELET COUNT 171 x10e3/uL (140-360); RED BLOOD COUNT 4.74 x10e6/uL (4.3-5.7); RED CELL DISTRIBUTION WIDTH 15.4 % (11.7-14.4)
[2018-10-21 06:16] LABS: ALANINE AMINOTRANSFERASE 91 IU/L (0-55); ALBUMIN 2.8 g/dL (3.5-5.0); ALBUMIN/GLOBULIN RATIO 0.7 (0.8-2.0); ALKALINE PHOSPHATASE 258 IU/L (40-150); ANION GAP 12.4 mmol/L (8-16); BLOOD UREA NITROGEN 13 mg/dL (7-26); BUN/CREATININE RATIO 15 (6-25); CALCIUM 8.8 mg/dL (8.4-10.2); CARBON DIOXIDE 24 mmol/L (22-29); CHLORIDE 105 mmol/L (98-107); CREATININE, SERUM 0.89 mg/dL (0.72-1.25); EST GLOMERULAR FILTRATION RATE > 60 ML/MIN (60-); GLUCOSE 137 mg/dL (74-118); POTASSIUM 4.4 mmol/L (3.5-5.1); SODIUM 137 mmol/L (136-145)
--- NOTE | 2018-10-21 06:58 | NUR ---
Completed nursing rounds with morning nurse. Pt lying flat in bed. Denies pain. Family at bedside. Will continue to monitor.
[2018-10-21 07:00] LABS: LYMPHOCYTES % (MANUAL) 45 % (19-48); MONOCYTES % (MANUAL) 11 % (3.4-9.0); NEUTROPHILS % (MANUAL) 34 % (40-74); PLATELET ESTIMATE ADEQUATE; PLATELET MORPHOLOGY COMMENT NORMAL; RBC MORPHOLOGY COMMENT NORMAL
--- NOTE | 2018-10-21 07:30 | NUR ---
PT SLEEPING NO DISTRESS NOTED,NO S/S DISCOMFORT
[2018-10-21] MEDS: MULTIVITAMINS/MINERALS TAB PO SCH (08:35)
[2018-10-21] MEDS: METHYLPREDNISOLONE SOD SUCC 40 MG/ML VIAL 1ML IV SCH ×2 (08:35→21:10)
[2018-10-21] MEDS: SODIUM CHLORIDE 0.9% 1000ML 1,000 ML IV SCH (08:35)
[2018-10-21] MEDS: FAMOTIDINE 20 MG/2 ML VIAL IV SCH ×2 (08:35→16:28)
[2018-10-21] MEDS: CEFAZOLIN SOD 1 GM/NS 50ML 50 ML IV SCH ×3 (11:30→21:10)
--- NOTE | 2018-10-21 16:22 | Progress Note ---
DATE: 10/21/2018 Medicine Progress Note SUBJECTIVE: The patient is doing much better today with no complaints. His jaundice has improved tremendously. His LFTs are improving tremendously as well. PHYSICAL EXAMINATION: VITAL SIGNS: Temperature is 97.3, pulse is 53, respiratory rate is 18, blood pressure 113/54, and pulse ox 98% on room air. GENERAL: Not in acute distress. Alert and oriented x3. Cooperative on examination. HEENT: Head is normocephalic and atraumatic. Eyes; pupils are equal, round, and reactive to light bilaterally. Extraocular movements are intact bilaterally. Throat; no evidence of erythema or exudates in the posterior pharynx. Has poor dentition. NECK: Supple. Good range of motion. PULMONARY: Clear to auscultation bilaterally. No wheezing, no rales, no rhonchi, and no crackles appreciated. CARDIOVASCULAR: Positive S1 and S2. No murmurs, rubs, or gallops appreciated. ABDOMEN: Soft, nondistended, and nontender to palpation. Bowel sounds present. MUSCULOSKELETAL: Strength is 5/5 throughout. No evidence of any muscle deficits on examination. No weakness appreciated. NEUROLOGIC: Cranial nerves II through XII grossly intact. No evidence of any neurological deficits on exam. SKIN: Intact. Warm to touch. Good cap refill. PSYCHIATRIC: Normal affect and mood. EXTREMITIES: No edema. Good range of motion throughout. LAB FINDINGS: Show white count 6.9, hemoglobin 13, hematocrit is 40, platelets about 171. Chemistry; sodium 137, potassium 4.4, chloride 105, bicarbonate 24, anion gap of 12, BUN 13, creatinine 0.89, glucose 137, calcium is 8.8, and total bilirubin is 5.1, down from 7.8. AST 60, ALT 90, and alkaline phosphatase 258. Total protein 7 and albumin 2.8. Urinalysis negative. IMPRESSION: 1. Vickey-Tejada virus mononucleosis. 2. Probable acute tonsillitis with probable bacterial etiology. 3. Fever. 4. Splenomegaly secondary to Vickey-Tejada virus. 5. Elevated transaminases secondary to Vickey-Tejada virus, now downtrending. PLAN: At this time, continue with IV steroids. His LFTs and total bilirubin have downtrended tremendously. I went over with them the MRCP findings in terms of the splenomegaly and I was pretty adamant about no hard contact sports or anything that will require to endure any kind of injury as he has enlarged spleen and it can cause rupture. I discussed this with the patient and his mother at bedside. They verbalized understanding. We will need to follow up in about 6 weeks' time to see if the splenomegaly has improved with their primary liver specialist or Infectious Disease doctor. At this time, continue with IV antibiotics per ID recommendations. You can stop the IV fluids and continue to follow him very closely. GI and Infectious Disease are to follow. Discussed plan of care with nursing staff, the patient, and the patient's mother. MD CONOR Reyes/DARWIN /[id number]
--- NOTE | 2018-10-21 17:48 | NUR ---
PT IN BED RESTING ,NO CHANGE IN STATUS,DENIES PAIN
--- NOTE | 2018-10-21 18:45 | NUR ---
Received bedside report from the day shift RN. The patient is laying on the bed, not in distress. The parents are at bedside. Call light within reach, bed height low, side rails up.
[2018-10-22] VITALS: BP 130/58
[2018-10-22 04:00] VITALS: BP 118/56
[2018-10-22] MEDS: CEFAZOLIN SOD 1 GM/NS 50ML 50 ML IV SCH (05:11)
[2018-10-22 06:02] LABS: BASOPHILS % 0.3 % (0.0-1.0); EOSINOPHILS # (AUTO) 0.1 (0.0-0.4); EOSINOPHILS % 1.1 % (0.0-6.0); HEMATOCRIT 41.3 % (38.2-49.6); HEMOGLOBIN 13.4 g/dL (14.0-18.0); LYMPHOCYTES # (AUTO) 3.7 (1.0-3.2); LYMPHOCYTES % 55.6 % (18.0-39.1); MEAN CORPUSCULAR HEMOGLOBIN 27.9 pg (28-32); MEAN CORPUSCULAR HGB CONC 32.4 g/dL (31-35); MONOCYTES # (AUTO) 0.6 (0.2-0.8); MONOCYTES % 8.7 % (4.4-11.3); NEUTROPHILS # (AUTO) 2.2 (2.1-6.9); PLATELET COUNT 185 x10e3/uL (140-360); RED CELL DISTRIBUTION WIDTH 15.2 % (11.7-14.4)
[2018-10-22 06:20] LABS: ALANINE AMINOTRANSFERASE 93 IU/L (0-55); ALBUMIN/GLOBULIN RATIO 0.7 (0.8-2.0); ALKALINE PHOSPHATASE 259 IU/L (40-150); ANION GAP 12.2 mmol/L (8-16); BLOOD UREA NITROGEN 13 mg/dL (7-26); BUN/CREATININE RATIO 16 (6-25); CARBON DIOXIDE 23 mmol/L (22-29); CHLORIDE 107 mmol/L (98-107); CREATININE, SERUM 0.81 mg/dL (0.72-1.25); EST GLOMERULAR FILTRATION RATE > 60 ML/MIN (60-); GLUCOSE 148 mg/dL (74-118); POTASSIUM 4.2 mmol/L (3.5-5.1); SODIUM 138 mmol/L (136-145)
--- NOTE | 2018-10-22 07:25 | NUR ---
PT IN BED SLEEPING NO DISTRESS NOTED,NO SIGNS JAUNDICE
[2018-10-22 07:41] VITALS: BP 110/53
[2018-10-22 08:02] VITALS: BP 110/53
[2018-10-22 11:51] VITALS: BP 120/58
--- NOTE | 2018-10-22 12:30 | NUR ---
pt discharged home,iv dcd without rednessor swellling,prescriptions nd instructions given copy on chart.transported to auto via w/c
--- NOTE | 2018-10-23 05:29 | Discharge Summary ---
FINAL DISCHARGE DIAGNOSES: 1. Vickey-Tejada virus mononucleosis. 2. Acute tonsillitis. 3. Fever, resolved. 4. Splenomegaly secondary to Vickey-Tejada virus. 5. Elevated transaminases secondary to Vickey-Tejada virus. CONSULTANTS: Infectious Disease and GI. PHYSICAL EXAMINATION: VITAL SIGNS: Temperature is 96.2, pulse 52, respiratory rate is 18, blood pressure 120/58, and pulse ox 98% on room air. LAB FINDINGS: Show white count of 6.5, hemoglobin 13, hematocrit is 41, and platelets of 485. Coagulation; PT 12, INR 0.86, PTT 33. Chemistry; sodium 138, potassium 4.6, chloride 107, bicarb 23, anion gap of 12, BUN 13, creatinine 0.81, glucose 148, and calcium 9. Total bilirubin is 4.1, on admission it was 10, 7.8, 5.1, and 4.1. AST on admission 121, 98, 60, and 54, AST 132, 118, and 193. Alkaline phosphatase 259, total protein 4.4, albumin is 3. Urinalysis was negative. Urine drug screen positive for just opioids which he was on pain medications at home. His HIV panel was negative. MICROBIOLOGY: None. IMAGING STUDIES: Abdominal ultrasound shows small amount of sludge in the gallbladder. No sonographic evidence of cholecystitis. MRCP shows splenomegaly with a small simple cyst, otherwise normal MRCP of the abdomen. No evidence of cholelithiasis, cholecystitis, or choledocholithiasis. HOSPITAL COURSE: This is a 18-year-old male, who was recently diagnosed with mononucleosis Vickey-Tejada virus, he was seen by his primary care physician, noticed that the patient was very jaundiced and was sent to the ER for further evaluation. While here, his lab showed a T-bilirubin of 10. LFTs were elevated and he had some enlarged tonsils. GI and Infectious Disease was consulted. From a GI standpoint, there was no workup needed. This was all secondary to elevated LFTs and splenomegaly, it was all secondary to underlying Vickey-Tejada virus. Infectious Disease was consulted. The patient was initially on IV antibiotics for concerns of acute tonsillitis, but did confirm the patient likely has mononucleosis Vickey-Tejada virus. The patient was treated symptomatically as well with IV fluids and pain control. His LFTs improved tremendously to T-bilirubin of four as well as his LFTs were down trending. The patient's jaundice improved tremendously while here in the hospital stay. His imaging study showed evidence of splenomegaly. We had a long discussion with the patient and the family at bedside with Infectious Disease present. We discussed with them not do any high contact sport due today in enlarged spleen and to avoid any high contact sports or any heavy exercise activities. They verbalized understanding. I discussed with them that the spleen can rupture with contact sports that are involved or any kind of high-risk exercises are involved. They verbalized understanding. The patient was started on steroids while in the hospital and discharged on oral steroids. He was cleared and discharged by both GI and ID. The patient will follow up with ID and GI in 2 weeks for repeat labs. On the day of discharge, vital signs were stable, labs reviewed and stable. The patient was seen, evaluated, and examined thoroughly on the day of discharge. No other complaints. The patient verbalized understanding and agreed to plan of care. A followup appointment as an outpatient with primary care physician in 1 week and Infectious Disease and GI in 2 weeks' time. MEDICATIONS: See med reconciliation form. DISPOSITION: Home. CONDITION: Stable. DIET: Heart healthy. In the event of any worsening symptoms, the patient was advised to come back to the ED for further evaluation. This discharge summary took greater than 35 minutes. MD CONOR Reyes/MODL /[id number]
== END 2018-10-22 12:21 | disposition home or self-care (01) | DRG 866 ==
LOC: ER 11:36 → ERHOLD 12:42 → MED/SURG3 17:12
PROVIDERS: ADMIT Internal Medicine; ATTEND Internal Medicine
DX: B27.09 Gammaherpesviral mononucleosis with other complications (principal); E44.0 Moderate protein-calorie malnutrition; J03.90 Acute tonsillitis, unspecified; R16.1 Splenomegaly, not elsewhere classified; D73.4 Cyst of spleen; K75.89 Other specified inflammatory liver diseases
CPT/HCPCS: 36415; 74183; 76705; 80053; 80307; 81001; 85025; 85610; 85730; 87390; 87536; 96361; 99284; G0433; G0435; J0690; J1200; J2920; J7030